=== PATIENT | male | born 1955 | race Caucasian/White ===

== ENCOUNTER → 2024-12-29 | Outpatient (CLI) | payer MEDICARE, MEDICAID, SELFPAY ==
[2024-12-29 12:37] LABS: Albumin, Serum 4.1 gm/dL (3.4-4.8); Anion Gap 6 (7-16); BUN/Creatinine Ratio 16 Ratio (12-20); Blood Urea Nitrogen 19 mg/dL (9-23); Calcium 8.9 mg/dL (8.3-10.6); Calcium (Corrected) 8.9 mg/dL (8.5-10.1); Carbon Dioxide 23.5 mMol/L (20.0-31.0); Chloride 114 mMol/L (98-107); Creatinine (Component) 1.2 mg/dL (0.6-1.3); Glucose 112 mg/dL (74-106); Osmolality,Calculated 288 (275-295); Phosphorous 2.6 mg/dL (2.4-5.1); Potassium 3.8 mMol/L (3.4-5.1); Sodium 143 mMol/L (136-145); eGFR > 60 See Note
== END | disposition home or self-care (01) ==
LOC: COPL 11:00
PROVIDERS: PCP Nurse Practitioner; Referring Provider Nurse Practitioner; Visit Provider Nurse Practitioner
DX: N18.32 Chronic kidney disease, stage 3b (principal)
CPT/HCPCS: 36415; 80069

== ENCOUNTER → 2025-02-05 | Outpatient (CLI) | payer MEDICARE, MEDICAID, SELFPAY ==
[2025-02-05 11:45] LABS: Collection Type, Urine Clean Catch
[2025-02-05 12:10] LABS: Basophils # (Auto) 0.2 Thou/mm3 (0.0-0.2); Basophils % (Auto) 2 % (0-2.5); Eosinophils # (Auto) 0.2 Thou/mm3 (0.0-0.5); Eosinophils % (Auto) 2 % (0-10); Hematocrit 38.0 % (41.0-53.0); Hemoglobin 12.8 g/dL (13.5-16.0); Immature Granulocytes Auto 0.03 Thou/mm3 (0.00-0.00); Lymphocytes # (Auto) 2.4 Thou/mm3 (1.0-4.8); Lymphocytes % (Auto) 24 % (10-50); Mean Corpuscular HGB Conc 33.7 g/dl (31.0-37.0); Mean Corpuscular Hemoglobin 29.6 pg (25.0-35.0); Mean Corpuscular Volume 88 fL (80-100); Monocytes # (Auto) 0.8 Thou/mm3 (0.0-0.8); Monocytes % (Auto) 8 % (0-12); Neutrophils # (Auto) 6.5 Thou/mm3 (1.8-7.7); Neutrophils % (Auto) 65 % (37-80); Nucleated Red Blood Cell # 0.00 Thou/mm3 (0.00-0.00); Nucleated Red Blood Cell % 0 /100 WBC (0); Platelet Count 332 Thou/mm3 (140-440); RDW Standard Deviation 46.1 fL (35.1-43.9); Red Blood Count 4.32 Miln/mm3 (4.50-5.90); White Blood Count 10.1 Thou/mm3 (3.8-10.6)
[2025-02-05 12:22] LABS: Alanine Aminotransferase 21 U/L (10-49); Albumin, Serum 4.2 gm/dL (3.4-4.8); Albumin/Globulin Ratio 1.6 (1.2-2.2); Alkaline Phosphatase 115 U/L (46-116); Anion Gap 5 (7-16); Aspartate Amino Transferase 20 U/L (0-34); BUN/Creatinine Ratio 13 Ratio (12-20); Bilirubin,Total 0.3 mg/dL (0.3-1.2); Blood Urea Nitrogen 15 mg/dL (9-23); Calcium 9.0 mg/dL (8.3-10.6); Calcium (Corrected) 9.0 mg/dL (8.5-10.1); Carbon Dioxide 23.9 mMol/L (20.0-31.0); Chloride 115 mMol/L (98-107); Creatinine (Component) 1.2 mg/dL (0.6-1.3); Globulin 2.6 gm/dL (2.3-3.5); Glucose 107 mg/dL (74-106); Magnesium 1.6 mg/dL (1.6-2.6); Osmolality,Calculated 287 (275-295); Phosphorous 2.7 mg/dL (2.4-5.1); Potassium 4.0 mMol/L (3.4-5.1); Sodium 144 mMol/L (136-145); Total Protein 6.8 gm/dL (5.7-8.2); Uric Acid 6.0 mg/dL (3.7-9.2); eGFR > 60 See Note
[2025-02-05 12:25] LABS: Creatinine MALB Rnd Ur 41 mg/dL (30-125); Microalbumin, Random Urine < 3 mg/L (0-300)
[2025-02-05 12:27] LABS: Ferritin 41 ng/mL (10.5-307.3); Iron 42 mcg/dL (65-175); Percent Iron Saturation 14 % (20-55); Total Iron Binding Capacity 299 mcg/dL (250-425); Unsaturated Iron Binding 257 (225-295)
[2025-02-05 12:28] LABS: Folate 9.26 ng/mL (>5.38); Vitamin B12 514 pg/mL (211-911); Vitamin D 25 Hydroxy Total 29.1 ng/mL (7.3-40.2)
[2025-02-05 12:34] LABS: Parathyroid Hormone Intact 29.7 pg/ml (18.5-88.0)
[2025-02-05 13:14] LABS: Bilirubin,Urine Negative (Negative); Blood,Urine Negative (Negative); Clarity,Urine Clear (Clear/Hazy); Color,Urine Colorless (Lt Yel-Yel); Glucose, Urine Negative (Negative); Ketones,Urine Negative (Negative); Leukocyte Esterase,Urine Negative (Negative); Nitrite,Urine Negative (Negative); PH,Urine 6.5 (5.0-7.0); Protein,Urine Negative (Neg - Trace); RBC,Urine 1 /hpf (0-3); Specific Gravity,Urine 1.008 (1.001-1.035); Squamous Epithelial Cell,Urine 1 /hpf (0-5); Urobilinogen,Urine Negative mg/dL (0.0-1.0); WBC,Urine 1 /hpf (0-5)
== END | disposition home or self-care (01) ==
LOC: COPL 11:00
PROVIDERS: PCP Family Medicine; Referring Provider Internal Medicine Nephrology; Visit Provider Internal Medicine Nephrology
DX: N18.32 Chronic kidney disease, stage 3b (principal); E55.9 Vitamin D deficiency, unspecified; E21.3 Hyperparathyroidism, unspecified; D63.8 Anemia in other chronic diseases classified elsewhere
CPT/HCPCS: 36415; 80053; 81001; 82043; 82306; 82570; 82607; 82728; 82746; 83540; 83550; 83735; 83970; 84100; 84550; 85025

== ENCOUNTER → 2025-03-10 | Outpatient (CLI) | payer MEDICARE, MEDICAID, SELFPAY ==
--- NOTE | 2025-03-10 15:00 | XR_ITS ---
Examination: CT abdomen and pelvis without contrast. Coronal 3-D reconstructions. Sagittal 2-D reconstructions. Date and time of exam:March 10, 2025, 1503 hours, comparison December 25, 2023 INDICATIONS: Left lower abdominal pain and tenderness after falling 3 weeks ago CTDI: vol (mGy): 8.65 DLP: (mGycm): 514 Technique: Axial images of the abdomen have been obtained, 3 mm slice thickness Intravenous contrast material has not been administered. Low dose protocols were performed. One or more of the following dose reduction techniques were used; automated exposure control, adjustment of the mA and/or KV according to patient size, use of iterative reconstruction technique. Findings: Pericardial effusion measuring up to 14 mm No visualized liver or splenic lesion No gallstones No pancreatic or adrenal mass No renal laceration or perinephric hematoma Abdominal aortic calcification, aorta is intact with no free blood in the abdomen 19 mm fat-containing umbilical hernia Normal appendix Colonic diverticulosis, no diverticulitis Urinary bladder contracted with mild wall thickening Moderate prostatomegaly Chronic osteoporotic compression L4, severe osteopenia, chronic osteoporotic compression T12 with kyphoplasty Right hip hemiarthroplasty with satisfactory alignment Moderate narrowing medial joint space IMPRESSION: Small pericardial effusion No abdominal parenchymal laceration Abdominal aorta intact No free blood in the abdomen or pelvis Severe osteopenia, chronic osteoporotic compressions L4, T12
== END | disposition home or self-care (01) ==
LOC: CCTX 14:26
PROVIDERS: PCP Family Medicine; Referring Provider Nurse Practitioner; Visit Provider Nurse Practitioner
DX: I31.39 Other pericardial effusion (noninflammatory) (principal); M85.88 Other specified disorders of bone density and structure, other site
CPT/HCPCS: 74176

== ENCOUNTER 2025-03-13 12:24 | Inpatient (IN) | payer MEDICARE, MEDICAID, SELFPAY ==
[2025-03-13] VITALS (16 sets, daily range): BP systolic 77–144; BP diastolic 52–80; PULSE 76–85; RESP 13–96; TEMP 36.4–37.1; O2SAT 92–98; BMI 28.2; BMI 28.0
--- NOTE | 2025-03-13 12:56 | EKG_ITS ---
[facility] Test Date: 2025-03-13 Pat Name: MACY OWENS Department: Room: - Gender: Male [employer] Operator: : [id number] Requested By: Dennis Peterson Order Number: [id number] Reading MD: Dennis Peterson Measurements Intervals [place] Rate: 75 P: 25 SC: 154 QRS: 1 QRSD: 92 T: 46 QT: 373 QTc: 418 Interpretive Statements SINUS RHYTHM Compared to ECG 04/21/2024 14:46:29 No significant changes /store/S0/[id number].pdf
--- NOTE | 2025-03-13 12:56 | XR_ITS ---
Examination: CT brain head without contrast. 2-D sagittal coronal reconstructions Date and time of exam:March 13, 2025 1319 hours INDICATIONS: Patient fell today with injury to the head, followed by head pain dizziness CTDI: vol (mGy):51.4 DLP: (mGycm):1050 Technique: Multiple CT axial sections of the brain have been obtained, 5 mm slice thickness. Contrast has not been administered. 2-D sagittal, coronal reconstructions have been obtained Low dose protocols were performed. One or more of the following dose reduction techniques were used; automated exposure control, adjustment of the mA and/or KV according to patient size, use of iterative reconstruction technique. Findings: No significant ventricular enlargement. Intra-axial or extra-axial hemorrhage density is not seen. No mass effect or midline shift Basal cisterns are not remarkable. Fourth ventricle is midline. Cranial vault intact. Impression: Negative for acute hemorrhage, mass effect or midline shift
--- NOTE | 2025-03-13 13:02 | PD.EDADULT ---
ED General RME/HPI General Chief complaint: Fall Stated complaint: FALLING WHEN WALKING, LOW BP, DIZZINESS Time Seen by Provider: 03/13/25 12:39 Arrival date/time: 03/13/25 12:24 RME / HPI RME / HPI narrative: 69-year-old male patient with significant history of prostate problem, hypertension, taking 81 mg of aspirin, came in for evaluation regarding near-syncope. Patient has been having frequent falls secondary to sudden onset of dizziness specially with doing something and ambulation. This been ongoing for the last 6 weeks, getting worst, yesterday developed at least 3 times. Patient also complained of abdominal pain, has been ongoing for the last few days, saw PCP, and CT scan of the abdomen and pelvis was done 3 days ago and came back unremarkable. Patient also complained of black-colored stool for the last 6 weeks, no vomiting blood. Denies any other complaints no medication was taken prior to arrival. In the triage patient blood pressure was noted to be 77/52. On my initial evaluation patient blood pressure was noted to be 96/78. Related Data Home Medications ?Medication ?Instructions ?Recorded ?Confirmed amlodipine 10 mg tablet 10 mg PO QDAY 05/17/18 04/21/24 tamsulosin 0.4 mg capsule 0.4 mg PO QDAY 11/23/20 04/21/24 cyclobenzaprine 10 mg tablet 10 mg PO TID 03/03/21 04/21/24 gabapentin 300 mg tablet 300 mg PO BID 03/03/21 04/21/24 ibuprofen 800 mg tablet 800 mg PO TID PRN Pain 03/03/21 04/21/24 lisinopril 20 mg tablet 20 mg PO QDAY 03/03/21 04/21/24 hydrocodone 10 mg-acetaminophen 1 tab PO TID 03/07/24 04/21/24 325 mg tablet tadalafil 10 mg tablet (Cialis) 10 mg PO DIRECTED PRN Sexual 03/17/24 04/21/24 Activity Previous Rx's ?Medication ?Instructions ?Recorded aspirin 81 mg tablet,delayed 81 mg PO QDAY #30 tabs 04/23/24 release atorvastatin 40 mg tablet 40 mg PO QPM #30 tabs 04/23/24 Allergies Allergy/AdvReac Type Severity Reaction Status Date / Time No Known Allergies Allergy Verified 03/13/25 12:30 Review of Systems Review of Systems Narrative Review of Systems: Review of system reviewed and within normal limits except mentioned in HPI ED Exam Narrative Physical exam: VITAL SIGNS: Reviewed. GENERAL APPEARANCE: Alert and interactive, follows commands, no acute distress, HEAD AND FACE: Non-traumatic. ENT: PERRL, pale conjunctiva, eyelid no trauma, Mucous membrane moist. NECK: Supple, nontender, no nuchal rigidity. CHEST: No tenderness, no crepitus, no paradoxical movement, no retractions. LUNGS: Clear, well ventilated, symmetric, no rales, no wheezing, no ronchi, no stridor, good breath sounds bilaterally. HEART: Regular rate, regular rhythm, no murmur, no gallops. ABDOMEN: Soft, positive bowel sounds, nondistended, no guarding, nontender, no rebound, no masses, RECTAL: Rectal exam was done by me, dark-colored stool noted however it was not pasty, positive for occult blood GENITAL: Deferred. NEUROLOGICAL: Gross motor function intact sensory function intact, Appropriate for age. MUSCULOSKELETAL: low back nontender, full range of motion. EXTREMITIES: Nontender, full range of motion. SKIN: Color pink, dry, no rash, no lacerations, no abrasions, no contusions. LYMPHATICS: Deferred. Course Quality Measures none Orders Category Date Time Status COVID-19 Screening Questionnaire NOW Care 03/13/25 14:22 Active Decision to Admit X1 Care 03/13/25 14:22 Active EKG (ED ONLY) *Do not use* NOW Care 03/13/25 12:56 Completed Thacker [Urinary Catheter] QS Care 03/13/25 13:53 Active IV [Insert IV] NOW Care 03/13/25 12:57 Active IV [Insert IV] NOW Care 03/13/25 12:59 Active Occult Blood,Stool (Nursing) ONCE Care 03/13/25 12:[address] abdomen wo con Stat Exams 03/13/25 14:[address] head/brain wo con Stat Exams 03/13/25 12:56 Completed EKG (ED Only) Stat Exams 03/13/25 12:56 Draft US renal BI Stat Exams 03/13/25 14:24 Completed CBC Stat Lab 03/13/25 12:55 Completed Comprehensive Metabolic Panel Stat Lab 03/13/25 12:55 Completed Partial Thromboplastin Time Stat Lab 09/12/25 12:55 Completed Prothrombin Time with INR Stat Lab 03/13/25 12:55 Completed Type and Screen Stat Lab 03/13/25 13:10 Completed Urinalysis Stat Lab 03/13/25 14:31 Completed Pantoprazole Inj [Protonix Inj] Med 03/13/25 13:30 Discontinued 80 mg IVP X1 ONE Ringers Lactated 1000 ml [Lactated Ringers] 1,000 ml Med 03/13/25 12:57 Discontinued IV 999 mls/hr Vital Signs Vital signs: Vital Signs Blood Pressure 77/52 L 03/13/25 12:33 Discharge Plan Plan Patient Disposition: Admit Acute Care w/in Hospital Discharge Disposition comment: Stable Problem List Clinical Impression: OG (acute kidney injury), Occult blood positive stool, Dizziness MDM Narrative [facility] hospital course: 69-year-old male patient with significant history of prostate problem, hypertension, taking 81 mg of aspirin, came in for evaluation regarding near-syncope. Patient has been having frequent falls secondary to sudden onset of dizziness specially with doing something and ambulation. This been ongoing for the last 6 weeks, getting worst, yesterday developed at least 3 times. Patient also complained of abdominal pain, has been ongoing for the last few days, saw PCP, and CT scan of the abdomen and pelvis was done 3 days ago and came back unremarkable. Patient also complained of black-colored stool for the last 6 weeks, no vomiting blood. Denies any other complaints no medication was taken prior to arrival. In the triage patient blood pressure was noted to be 77/52. On my initial evaluation patient blood pressure was noted to be 96/78. EKG showed sinus rhythm, ventricular rate of 75 bpm, no ST segment elevation depression noted. Patient received IV fluids for hydration, currently patient's blood pressure was noted to be 105/69. Patient is reported workup is significant for leukocytosis of 14.1 creatinine 3.2 BUN of 35. Last month patient's creatinine was normal. I did a rectal exam, it tested slightly positive for occult blood. I did not notice any black tarry stool. I reviewed patient's CT scan of the head, came back unremarkable. CT scan of the abdomen that was done 3 days ago also came back unremarkable. Medication Administration(s) Medication Administration History Acetaminophen (Acetaminophen 325 Mg Tablet) 650 mg PO Q6H PRN PRN Reason: PAIN OR FEVER > 100.4 Stop: 04/12/25 16:31 Enoxaparin Sodium (Enoxaparin Sod Inj 30 Mg/0.3 Ml Syringe) 30 mg SC QDAY MARY KATE Stop: 03/28/25 08:59 Lactated Ringer's (Lactated Ringers) 1,000 mls @ 80 mls/hr IV .[id number] MARY KATE Stop: 04/12/25 16:44 Discontinued Medications Acetaminophen (Acetaminophen 500 Mg Tablet) 1,000 mg PO Q6H PRN PRN Reason: Fever >101.5 Stop: 04/12/25 16:14 Lactated Ringer's (Lactated Ringers) 1,000 mls @ 999 mls/hr IV .Q1H1M ONE Stop: 03/13/25 13:57 Last Infusion: 03/13/25 14:35 Dose: Infused Documented By: Admin: 03/13/25 13:31 Dose: 999 mls/hr Documented By: MILA Pantoprazole Sodium (Pantoprazole Inj 40 Mg Vial) 80 mg IVP X1 ONE Stop: 03/13/25 13:31 Last Admin: 03/13/25 13:28 Dose: 80 mg Documented By: MILA
[2025-03-13 13:18] LABS: Basophils # (Auto) 0.1 Thou/mm3 (0.0-0.2); Basophils % (Auto) 1 % (0-2.5); Eosinophils # (Auto) 0.2 Thou/mm3 (0.0-0.5); Eosinophils % (Auto) 1 % (0-10); Hematocrit 34.5 % (41.0-53.0); Hemoglobin 11.5 g/dL (13.5-16.0); Immature Granulocytes Auto 0.04 Thou/mm3 (0.00-0.00); Lymphocytes # (Auto) 3.1 Thou/mm3 (1.0-4.8); Lymphocytes % (Auto) 22 % (10-50); Mean Corpuscular HGB Conc 33.3 g/dl (31.0-37.0); Mean Corpuscular Hemoglobin 29.7 pg (25.0-35.0); Mean Corpuscular Volume 89 fL (80-100); Monocytes # (Auto) 1.2 Thou/mm3 (0.0-0.8); Monocytes % (Auto) 8 % (0-12); Neutrophils # (Auto) 9.5 Thou/mm3 (1.8-7.7); Neutrophils % (Auto) 67 % (37-80); Nucleated Red Blood Cell # 0.00 Thou/mm3 (0.00-0.00); Nucleated Red Blood Cell % 0 /100 WBC (0); Platelet Count 352 Thou/mm3 (140-440); RDW Standard Deviation 48.0 fL (35.1-43.9); Red Blood Count 3.87 Miln/mm3 (4.50-5.90); White Blood Count 14.1 Thou/mm3 (3.8-10.6)
[2025-03-13 13:31] LABS: INR 1.0 (0.9-1.3); Partial Thromboplastin Time 22.0 Seconds (22.0-36.0); Prothrombin Time 10.6 Seconds (9.0-12.2)
[2025-03-13] MEDS: RINGERS LACTATED 1000 ML 1,000 ML 999 ML IV (13:31)
[2025-03-13 13:35] LABS: Alanine Aminotransferase 12 U/L (10-49); Albumin, Serum 4.3 gm/dL (3.4-4.8); Albumin/Globulin Ratio 1.6 (1.2-2.2); Alkaline Phosphatase 118 U/L (46-116); Anion Gap 8 (7-16); Aspartate Amino Transferase 14 U/L (0-34); BUN/Creatinine Ratio 11 Ratio (12-20); Bilirubin,Total 0.3 mg/dL (0.3-1.2); Blood Urea Nitrogen 35 mg/dL (9-23); Calcium 8.9 mg/dL (8.3-10.6); Calcium (Corrected) 8.9 mg/dL (8.5-10.1); Carbon Dioxide 21.8 mMol/L (20.0-31.0); Chloride 109 mMol/L (98-107); Creatinine (Component) 3.2 mg/dL (0.6-1.3); Estimated Creatinine Clearance 26.3 mL/min (>60); Globulin 2.7 gm/dL (2.3-3.5); Glucose 119 mg/dL (74-106); Osmolality,Calculated 286 (275-295); Potassium 4.0 mMol/L (3.4-5.1); Sodium 139 mMol/L (136-145); Total Protein 7.0 gm/dL (5.7-8.2); eGFR 20 See Note
--- NOTE | 2025-03-13 14:24 | XR_ITS ---
Examination: Retroperitoneal ultrasound, complete Technique: Multiple high resolution grayscale images of the retroperitoneum obtained, including kidneys and bladder. Exam date and time:March 13, 2025, 1432 hours INDICATIONS: Acute renal insufficiency on laboratory examination this week FINDINGS: Right kidney 10.0 cm cortex 1.2 cm Left kidney 11.5 cm cortex 1.7 cm 18 mm left renal cyst No hydronephrosis Mild renal parenchymal scar formation Contracted urinary bladder IMPRESSION: Bilateral renal cortical thinning Mild bilateral renal parenchymal scar formation No hydronephrosis
[2025-03-13 14:40] LABS: Collection Type, Urine Clean Catch
--- NOTE | 2025-03-13 14:42 | XR_ITS ---
Examination: CT abdomen without intravenous contrast. Coronal 2-D reconstructions. Sagittal 2-D reconstructions. Date and time of exam:March 13, 2025, 1524 hours, comparison March 10, 2025 INDICATIONS: Upper abdominal pain beginning today CTDI: vol (mGy): 9.35 DLP: (mGycm): 365 Technique: Axial images of the abdomen have been obtained, 3 mm slice thickness, without intravenous contrast 2-D sagittal coronal reconstructions Low dose protocols were performed. One or more of the following dose reduction techniques were used; automated exposure control, adjustment of the mA and/or KV according to patient size, use of iterative reconstruction technique. Findings: Small pericardial effusion, anteriorly measuring 11 mm No visualized liver or splenic lesion Contracted gallbladder No pancreatic or adrenal mass Moderate renal scar formation No renal calculi or hydronephrosis Aortic calcification no aneurysmal dilatation Normal appendix No bowel obstruction No diverticulitis IMPRESSION: Moderate renal parenchymal scar formation No renal or ureteral calculi, no hydronephrosis Normal appendix No bowel obstruction
[2025-03-13 14:50] LABS: Bilirubin,Urine Negative (Negative); Blood,Urine 1+ (Negative); Clarity,Urine Clear (Clear/Hazy); Color,Urine Lt-Yellow (Lt Yel-Yel); Glucose, Urine Negative (Negative); Hyaline Casts,Urine < 1 /hpf (0-1); Ketones,Urine Negative (Negative); Leukocyte Esterase,Urine Negative (Negative); Nitrite,Urine Negative (Negative); PH,Urine 6.0 (5.0-7.0); Protein,Urine Trace (Neg - Trace); RBC,Urine 42 /hpf (0-3); Specific Gravity,Urine 1.015 (1.001-1.035); Squamous Epithelial Cell,Urine < 1 /hpf (0-5); Urobilinogen,Urine Negative mg/dL (0.0-1.0); WBC,Urine 2 /hpf (0-5)
--- NOTE | 2025-03-13 16:27 | ESHP_ITS ---
<Statement entered by Keven Stuart MD - 03/14/25 01:42> Chris Martini is a 69-year-old male with a past medical history of BPH, hypertension, chronic back pain who presented with lightheadedness and presyncope with initial BP in ED of 77/52 and admitted for management of OG. Received IV fluids in ED and responsive, improving SBP to low 100s/110s. Other vital signs stable and CBC remarkable for leukocytosis of 14, hemoglobin of 11.5 which seems to be patient's baseline. CHEM panel shows creatinine at 3.2 with baseline appearing to be 0.9-1.1. Suspect that decreased renal function may have led to decreased clearance of particular medications. States that he takes cyclobenzaprine, gabapentin, and [place] and suspect that the decreased clearance may have led to altered mentation. Will continue IVF for OG and if continues to improve then likely prerenal in etiology. Will hold blood pressure medications and continue to monitor given soft BP in ED and IVF for OG. ----- Note reviewed and agree with care plan as documented. Please refer to the note below for further details. Plan discussed with attending physician Dr. Yessy Stuart MD PGY-2 Internal Medicine Documentation for date of: 03/13/25 HPI History of Present Illness History of present illness: HPI: 69-year-old male with a past medical history of BPH, hypertension, and chronic back pain presented to the ED on 03/13/2025 after having episodes of near syncope for the past 6 weeks. He describes feelings of dizziness and like he needs to pass out that occur about 3-4 times per day that last a few seconds. He denies chest pain, palpitations, or shortness of breath during these episodes. He does admit to tunneling of his vision during these events. The patient took [place] and cyclobenzaprine this morning. Per ED physician history, the patient has also complained about abdominal pain going on for the past few days. A CT of the abdomen pelvis 3 days ago was unremarkable. Patient also endorsed black-colored stool for the past 6 weeks but denied hematemesis. The patient never mentioned any history of black- colored stools to me personally on initial evaluation. ED course: * Vitals on arrival: BP 77/52, pulse 82, respiratory rate 19, O2 sat 96% on room air. * Labs: White blood cell 14.1, hemoglobin 11.5, BUN 35, creatinine 3.2, eGFR of 20, glucose 119, urine RBCs 42. Other labs: Sodium 139, potassium 4.0, chloride 109, carbon dioxide 21.8, anion gap 8. * Imaging: Head CT was negative for acute hemorrhage mass effect or midline shift. EKG showed a sinus rhythm with a rate of [address] segment changes. Renal ultrasound showed bilateral renal cortical thinning, mild bilateral renal parenchymal scar formation, there was no hydronephrosis, there is an 18 mm left renal cyst. Abdominal CT showed no renal or ureteral calculi, no hydronephrosis, normal appendix, and no bowel obstruction. * In the ED, patient was started on IV fluids and received a rectal exam that was slightly positive for occult blood. He also had a Thacker placed and drained a significant unspecified volume of urine. History: * Past medical history: Hypertension, BPH * Surgical history: Hip and knee replacement * Family history: Patient denies any family history of medical problems * Social history: Patient has smoked 1 pack of cigarettes daily for 50 years, denies alcohol or illicit drugs * Allergies: No known drug allergies Home medications: * Amlodipine 10 mg p.o. daily * Tamsulosin 0.4 mg p.o. daily * Cyclobenzaprine 10 mg p.o. 3 times daily * Gabapentin 300 mg p.o. twice daily * Ibuprofen 800 mg p.o. 3 times daily as needed * Lisinopril 20 mg p.o. daily * Hydrocodone 10 mg acetaminophen 325 mg 1 tablet p.o. 3 times daily * Tadalafil 10 mg as needed * Isosorbide mononitrate ER 60 mg daily * Hydrochlorothiazide 25 mg daily * Nitroglycerin 0.4 mg as needed Review of Systems Review of Systems Narrative Review of Systems: Review of Systems: * General: Denies fevers, chills. * HEENT: Denies headache, congestion, or sore throat. * Cardiac: Denies chest pain or palpitations. * Pulmonary: Denies shortness of breath or cough. * GI: Denies nausea, vomiting, diarrhea, constipation, melena, or hematochezia. * : Denies dysuria, hematuria, frequency, or urgency. * MSK: Denies pain in the extremities, joints, or myalgias. * Neuro: Has had 3-4 episodes daily of dizziness and feeling like he needs to pass out that last for a few seconds, denies loss of consciousness. Exam Vital Signs Pulse Resp BP Pulse Ox O2 Del Method 76 19 105/69 98 Room Air 03/13/25 14:33 03/13/25 14:33 03/13/25 14:33 03/13/25 14:33 03/13/25 14:33 Narrative Exam General: Confused. Awake and in no acute distress. Conversational and non-toxic appearing. Neurologic: No gross neurological deficit, and patient able to move all 4 extremities. HEENT: Normocephalic, atraumatic, mucous membranes moist. Pupils reactive to light. Heart: Regular rate and rhythm, normal S1 and S2, no murmurs. Lungs: Clear to auscultation bilaterally with no wheezing or crackles. Abdomen: Soft, nondistended, nontender, positive bowel sounds. No guarding or rebound tenderness. Extremities: No edema. 2+ radial and dorsalis pedis pulses bilaterally. Skin: Warm. Dry. No rash or ecchymoses. Results: Labs 03/14/25 04:55 03/14/25 04:55 Labs: Short CBC 03/13/25 Range/Units 12:55 WBC 14.1 H (3.8-10.6) Thou/mm3 Hgb 11.5 L (13.5-16.0) g/dL Hct 34.5 L (41.0-53.0) % Plt Count 352 (140-440) Thou/mm3 BMP 03/13/25 12:55 Sodium 139 Potassium 4.0 Chloride 109 H Carbon Dioxide 21.8 BUN 35 H Creatinine 3.2 H Glucose 119 H Calcium 8.9 Liver Function 03/13/25 Range/Units 12:55 Total Bilirubin 0.3 (0.3-1.2) mg/dL AST 14 (0-34) U/L ALT 12 (10-49) U/L Alkaline Phosphatase 118 H (46-116) U/L Albumin 4.3 (3.4-4.8) gm/dL Urine 03/13/25 Range/Units 14:31 Urine Color Lt-Yellow (Lt Yel-Yel) Urine Clarity Clear (Clear/Hazy) Urine pH 6.0 (5.0-7.0) Ur Specific [place] 1.015 (1.001-1.035) Urine Protein Trace (Neg - Trace) Urine Glucose (UA) Negative (Negative) Quality Measures Quality Measures none Advance care planning discussed with:: patient Medications Home Medications and Allergies Home Medications ?Medication ?Instructions ?Recorded ?Confirmed ?Type amlodipine 10 mg tablet 10 mg PO QDAY 05/17/1803/14 History tamsulosin 0.4 mg capsule 0.4 mg PO QDAY 11/23/2003/02 History cyclobenzaprine 10 mg tablet 10 mg PO TID 03/03/21 History gabapentin 300 mg tablet 300 mg PO QID 03/03/2103/14 History ibuprofen 800 mg tablet 800 mg PO TID PRN Pain 03/0303/14/25 History lisinopril 20 mg tablet 30 mg PO QDAY 03/03/2103/14 History hydrocodone 10 mg-acetaminophen 1 tab PO TID 03/07/24 03/14/25 History 325 mg tablet tadalafil 10 mg tablet (Cialis) 10 mg PO DIRECTED P RN Sexual 03/17/24 03/14/25 History Activity albuterol sulfate 90 mcg/actuation 2 puff inhalation Q 4H PRN 03/14/25 03/14/25 History aerosol inhaler shortness of breath or wheez ing Allergies Allergy/AdvReac Type Severity Reaction Status Date / Time No Known Allergies Allergy Verified 03/13/25 12:30 Visit Medications Acetaminophen (Acetaminophen 325 Mg Tablet) 1,000 mg PO Q6H PRN PRN Reason: Fever >101.5 Stop: 04/12/25 16:14 Enoxaparin Sodium (Enoxaparin Sod Inj 40 Mg/0.4 Ml Syringe) 40 mg SC QDAY MARY KATE Stop: 03/28/25 08:59 Discontinued Medications Lactated Ringer's (Lactated Ringers) 1,000 mls @ 999 mls/hr IV .Q1H1M ONE Stop: 03/13/25 13:57 Last Infusion: 03/13/25 14:35 Dose: Infused Pantoprazole Sodium (Pantoprazole Inj 40 Mg Vial) 80 mg IVP X1 ONE Stop: 03/13/25 13:31 Last Admin: 03/13/25 13:28 Dose: 80 mg Assessment & Plan Plan Summary: 69-year-old male with a past medical history of hypertension, BPH, and chronic back pain who presented to the ED on 03/13/2025 with a 6-week history of 3-4 episodes per day of dizziness and feeling like he needs to pass out and black stools for the past 6 weeks. #Syncopal episode * For the past 6 weeks, the patient has had 3-4 episodes per day where he feels dizzy and like he needs to pass out for a few seconds with associated tunnel vision * The patient takes [place], cyclobenzaprine, lisinopril, amlodipine, tadalafil, and isosorbide mononitrate at home, all of which can affect blood pressure * Though the patient denies taking all of these medications at once, polypharmacy should still be considered in the presence of a syncopal episode * Per the patient he took [place] and cyclobenzaprine this morning, which may explain his confusion on initial examination * Patient has had melena, hemoglobin 11.5. Less likely that syncope is caused by anemia, patient is not tachycardic Plan: * Will hold home medications cyclobenzaprine, lisinopril, amlodipine, tadalafil, and isosorbide mononitrate * Will consider resuming when deemed safe based on hemodynamic stability and patient's mentation * Continue to monitor the patient's mentation, respiratory drive * Follow-up orthostatic vitals #OG on CKD #BPH * Patient takes tamsulosin, mentions that it helps him urinate * Patient had a large volume of urine drained from his bladder from Thacker catheter in the ED * BUN 35, creatinine 3.2, eGFR 20, considering the presence of acute urinary retention abdominal CT was negative for hydronephrosis because it was performed after the patient's bladder was drained * Per the patient his baseline GFR is around 60 Plan: * Continue Thacker * Hold home tamsulosin * Trend BUN, creatinine, eGFR #Hypertension * Patient takes amlodipine 10 mg p.o. daily, lisinopril 20 mg p.o. daily, isosorbide mononitrate 60 mg daily, hydrochlorothiazide 25 mg daily, and nitroglycerin 0.4 mg as needed * Patient presented hypotensive with a BP in the 70s over 40s, is improving Plan: * Will hold these medications in the setting of hypotension and near syncope * Consider resuming based on hemodynamic stability and the patient's mentation #Coronary artery disease #Hyperlipidemia * Patient had a coronary angiogram with Dr. Dubois on 04/22/2024 that showed a left ventricular systolic function of 55% and a mid segment 40 to 50% occlusion lesion of the left anterior descending artery * Per Dr. Dubois, medical management was continued * Patient takes atorvastatin 40 mg p.o. daily Plan: * Consider restarting home statin #Melena * Patient has had a 6-week history of melanotic stools * Fecal occult blood test was positive in the ED * Hemoglobin 11.5 Plan: * GI consult * Trend H&H #Chronic pain * Patient has a history of chronic back pain * Takes [place] and cyclobenzaprine as needed Plan: * Will not start scheduled [place] doses at this time, however will do spot doses of [place] 5/325 as needed for pain Hospital Maintenance: DVT ppx: SCDs GI ppx: Pantoprazole 40 mg once daily Diet: Cardiac diet IV lines: Peripheral IV Thacker: In place Code status: DNR, intubation okay Dispo: Admitted for recurrent near syncopal events and melena. GI consulted. Monitoring the patient's mentation. Patient was seen and discussed with my attending physician Dr. Yessy NAYAK and my senior resident Dr. Narciso LING PGY-2. Lorne Serrano DO PGY-1. Attending Provider Attestation/Addendum Tameka Nowak DO, attest that I was physically present for the fowler portions of the service and evaluated the patient with the resident and I reviewed and discussed the case with the resident and agree with the resident's findings and plans of care as documented above Patient is a 69-year-old male with past medical history of BPH, hypertension, chronic back pain who presented to the ED due to lethargy and confusion. Patient was seen by his primary doctor this a.m during which he was noted to be very lethargic and had fallen asleep during the interview with his primary doctor. Spoke with the midlevel at [facility] who stated that the patient was stumbling when he came into the clinic. He stated that he had just taken his [place],gabapentin and Flexeril this morning. He was noted to have a systolic blood pressure in the 60s. Patient's was subsequently called to the clinic to send patient to the ED. Upon presentation to the ED, patient was very confused per ER provider. CT head was done showing no acute intracranial findings. A CT abdomen and pelvis had been done about 3 days ago. However, this CT was ordered from previous primary doctor visit due to falls. It is unclear if patient's creatinine was elevated at that time. Will repeat CT abdomen pelvis to rule out any obstruction causing elevated creatinine. Patient received IV fluids in the ER and appears much more alert. is also at bedside to provide further history. 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 He has had frequent falls for this reason. He states that he has been seeing a computer systems software engineer outpatient and had a cardiac cath about 1 year ago during which he was not found to have any lesions. Patient takes aspirin at home. He also takes lisinopril Flomax. He states the Flomax has been helping with his BPH significantly. Suspect that patient may be having syncopal episodes due to polypharmacy and hypotension. Will hold any antihypertensives at this time. Patient states that he does not like to drink water and usually drinks Pepsi. He has seen a geography professor in the past due to acute kidney injury in the setting of ibuprofen overuse. Kidneys have since recovered and patient states he stopped drinking water after he was told that it had improved. states that patient often talks crazy . He takes [place] at home due to his chronic back pain. Will admit patient to med/telemetry for further workup and medical management of OG versus CKD. Baseline creatinine is 1.2, creatinine currently 3.2. Renal ultrasound also shows no hydronephrosis or obstruction. Nephrology consulted. Will start patient on IV fluid hydration and follow with renal function. Will monitor nephrotoxic agents. Once blood pressure improves, will do orthostatic vitals. Will monitor urine output with Thacker catheter. Per nurse at bedside, patient has significant urine output after Thacker placement. Will avoid any nephrotoxic agents at this time
[2025-03-13] MEDS: RINGERS LACTATED 1000 ML 1,000 ML 80 ML IV (18:03)
[2025-03-13] MEDS: HYDROcodone/APAP 5/325 TABLET 1 TAB PO (18:03)
--- NOTE | 2025-03-13 18:28 | PC.NURSE ---
REPORT CALLED TO SALMA AMBROSE. PATIENT BEING ADMITTED TO MED/TELE BED.
--- NOTE | 2025-03-13 18:59 | PD.IMCONS ---
HPI Data of Consult Requesting Physician: Tameka Krishnamurthy DO Primary Care Provider: MEL Barry Consult Narrative Reason for consult: Melena FOBT positive, syncope History of present illness: 69 years old male came to the emergency room with episodes of syncope was found to have 2 to 3-day history of melanotic stools and was found to be Hemoccult positive Initial hemoglobin hematocrit 11.5 and 34.5 He does take baby aspirin but no other blood thinners He does have a history of essential hypertension and history of hip and knee replacement patient does take ibuprofen also on a as needed basis cc:: cc: Tameka Krishnamurthy DO Review of Systems Review of Systems Systems Reviewed: All systems reviewed, normal except as documented Past Medical History Surgical History OTHER SURGICAL HX: As under history of present illness Meds Home Medications and Allergies Home Medications ?Medication ?Instructions ?Recorded ?Confirmed ?Type amlodipine 10 mg tablet 10 mg PO QDAY 05/17/18 04/21/24 History tamsulosin 0.4 mg capsule 0.4 mg PO QDAY 11/23/20 04/21/24 History cyclobenzaprine 10 mg tablet 10 mg PO TID 03/03/21 04/21/24 History gabapentin 300 mg tablet 300 mg PO BID 03/03/21 04/21/24 History ibuprofen 800 mg tablet 800 mg PO TID PRN Pain 03/03/21 04/21/24 History lisinopril 20 mg tablet 20 mg PO QDAY 03/03/21 04/21/24 History hydrocodone 10 mg-acetaminophen 1 tab PO TID 03/07/24 04/21/24 History 325 mg tablet tadalafil 10 mg tablet (Cialis) 10 mg PO DIRECTED PRN Sexual 03/17/24 04/21/24 History Activity Allergies Allergy/AdvReac Type Severity Reaction Status Date / Time No Known Allergies Allergy Verified 03/13/25 12:30 Exam Vital Signs Temp Pulse Resp BP Pulse Ox O2 Del Method 98.7 F 84 17 132/75 H 95 Room Air 03/13/25 18:15 03/13/25 18:47 03/13/25 18:15 03/13/25 18:47 03/13/25 18:15 03/13/25 18:15 Constitutional Comments: Chronically ill-appearing Routine Respiratory Exam Comments: Normal to auscultation Routine Abdominal Exam Comments: Soft nontender Results Labs 03/13/25 12:55 03/13/25 12:55 Labs: Short CBC 03/13/25 Range/Units 12:55 WBC 14.1 H (3.8-10.6) Thou/mm3 Hgb 11.5 L (13.5-16.0) g/dL Hct 34.5 L (41.0-53.0) % Plt Count 352 (140-440) Thou/mm3 BMP 03/13/25 12:55 Sodium 139 Potassium 4.0 Chloride 109 H Carbon Dioxide 21.8 BUN 35 H Creatinine 3.2 H Glucose 119 H Calcium 8.9 Liver Function 03/13/25 Range/Units 12:55 Total Bilirubin 0.3 (0.3-1.2) mg/dL AST 14 (0-34) U/L ALT 12 (10-49) U/L Alkaline Phosphatase 118 H (46-116) U/L Albumin 4.3 (3.4-4.8) gm/dL Urine 03/13/25 Range/Units 14:31 Urine Color Lt-Yellow (Lt Yel-Yel) Urine Clarity Clear (Clear/Hazy) Urine pH 6.0 (5.0-7.0) Ur Specific [place] 1.015 (1.001-1.035) Urine Protein Trace (Neg - Trace) Urine Glucose (UA) Negative (Negative) Assessment and Plan Additional Assessment & Plan Additional Plan: Melena Hemoccult positive stool Anemia blood loss OG on CKD Essential hypertension Plan Clear liquid diet N.p.o. midnight tonight except p.o. meds Consent obtained for fiberoptic esophagogastroduodenoscopy with possible biopsy possible therapeutic intervention under intravenous moderate sedation Scheduled for tomorrow IV Protonix Thank you very much for the opportunity to participate in care of this patient
--- NOTE | 2025-03-13 20:41 | PC.NURSE ---
re med rec- Pt don't remember name of home meds. Advised pt to have family bring med bottles from home in a.m.
[2025-03-13] MEDS: HEPARIN SOD INJ 5000 UNIT/ML VIAL SC (22:25)
[2025-03-14] VITALS (18 sets, daily range): BP systolic 97–168; BP diastolic 59–95; PULSE 20–92; RESP 12–98; TEMP 36.3–36.9; O2SAT 92–100
--- NOTE | 2025-03-14 05:06 | PC.NURSE ---
re consent for egd- Pt does not know exactly what procedure he will have today, it's the stomach - Pt prefers to talk to Dr. Crouch before signing consent.
[2025-03-14 05:41] LABS: Basophils # (Auto) 0.1 Thou/mm3 (0.0-0.2); Basophils % (Auto) 1 % (0-2.5); Eosinophils # (Auto) 0.3 Thou/mm3 (0.0-0.5); Eosinophils % (Auto) 3 % (0-10); Hematocrit 30.7 % (41.0-53.0); Hemoglobin 10.4 g/dL (13.5-16.0); Immature Granulocytes Auto 0.02 Thou/mm3 (0.00-0.00); Lymphocytes # (Auto) 2.9 Thou/mm3 (1.0-4.8); Lymphocytes % (Auto) 30 % (10-50); Mean Corpuscular HGB Conc 33.9 g/dl (31.0-37.0); Mean Corpuscular Hemoglobin 30.1 pg (25.0-35.0); Mean Corpuscular Volume 89 fL (80-100); Monocytes # (Auto) 1.0 Thou/mm3 (0.0-0.8); Monocytes % (Auto) 11 % (0-12); Neutrophils # (Auto) 5.4 Thou/mm3 (1.8-7.7); Neutrophils % (Auto) 55 % (37-80); Nucleated Red Blood Cell # 0.00 Thou/mm3 (0.00-0.00); Nucleated Red Blood Cell % 0 /100 WBC (0); Platelet Count 274 Thou/mm3 (140-440); RDW Standard Deviation 46.7 fL (35.1-43.9); Red Blood Count 3.45 Miln/mm3 (4.50-5.90); White Blood Count 9.7 Thou/mm3 (3.8-10.6)
[2025-03-14 06:00] LABS: INR 1.0 (0.9-1.3); Partial Thromboplastin Time 28.2 Seconds (22.0-36.0); Prothrombin Time 10.7 Seconds (9.0-12.2)
[2025-03-14] MEDS: RINGERS LACTATED 1000 ML 1,000 ML 80 ML IV (06:29)
[2025-03-14 06:39] LABS: Alanine Aminotransferase 10 U/L (10-49); Anion Gap 7 (7-16); Aspartate Amino Transferase 10 U/L (0-34); Bilirubin,Total 0.3 mg/dL (0.3-1.2); Blood Urea Nitrogen 27 mg/dL (9-23); Calcium 8.5 mg/dL (8.3-10.6); Carbon Dioxide 21.7 mMol/L (20.0-31.0); Cardiac Risk Estimate 2.7 RATIO (4.0-6.7); Chloride 115 mMol/L (98-107); Cholesterol 74 mg/dL (132-200); Glucose 93 mg/dL (74-106); HDL Cholesterol 27 mg/dL (40-60); LDL Cholesterol,Calculated 34 mg/dL (0-130); Magnesium 2.2 mg/dL (1.6-2.6); Osmolality,Calculated 291 (275-295); Phosphorous 3.2 mg/dL (2.4-5.1); Potassium 3.4 mMol/L (3.4-5.1); Sodium 144 mMol/L (136-145); Thyroid Stimulating Hormone 0.96 uIU/mL (0.55-4.78); Total Protein 5.9 gm/dL (5.7-8.2); Triglycerides 65 mg/dL (30-150)
[2025-03-14 06:40] LABS: Albumin, Serum 3.5 gm/dL (3.4-4.8); Albumin/Globulin Ratio 1.5 (1.2-2.2); Alkaline Phosphatase 97 U/L (46-116); BUN/Creatinine Ratio 17 Ratio (12-20); Calcium (Corrected) 8.9 mg/dL (8.5-10.1); Creatinine (Component) 1.6 mg/dL (0.6-1.3); Estimated Creatinine Clearance 52.6 mL/min (>60); Globulin 2.4 gm/dL (2.3-3.5); eGFR 47 See Note
[2025-03-14 08:32] LABS: OBS Card Lot # 124; OBS Developer Lot # 224; OBS Performed By fabic; OBS QC OK? Yes; Occult Blood, Stool Negative (Negative)
[2025-03-14] MEDS: VIT B12/Vit C/FA (Nephrovite) TABLET 1 TAB PO (10:27)
[2025-03-14] MEDS: NICOTINE PATCH 7 MG/24 HR PATCH.TD24 TOP (10:27)
--- NOTE | 2025-03-14 10:51 | PC.SS ---
69YO White male, reason for visit: SYNCOPE, OG. ? SS met with patient at bedside, role, and purpose of today?s contact was explained. Patient confirmed his demographic information. Patient stated his primary medical surrogate decisionmaker is his spouse, Giselle Martini [phone]. Patient reported he is independent with ADL completion and ambulation as well. Pharmacy: [facility] PCP: Carri Dubon, last appt. was over a year ago. Discharge plan discussed with patient, he is requesting to return home at the time of discharge. ? Next of kin: Spouse, Giselle Martini [phone] Discharge plan: Home, family to transport.
--- NOTE | 2025-03-14 10:55 | PD.NEPHCONS ---
History of Present Illness Data of Consult Consult date: 03/14/25 Requesting Physician: Tameka Krishnamurthy DO Primary Care Provider: MEL Barry Consult Narrative Reason for consult: OG History of present illness: Mr. Martini is a 69-year-old gentleman with past medical history significant for hypertension, BPH (seen Dr Castro-On tamsulosin), chronic back pain (on [place], cyclobenzaprine, gabapentin) presented to the emergency department complaining of presyncopal episode and passing out spells with dizziness going on for the last 6 weeks. Each episode last few seconds. Also associated with some blurred vision. In the emergency department CT abdomen was unremarkable. Renal ultrasound unremarkable with no hydronephrosis. Patient stated that for the last couple of weeks he is having pain in the left lower quadrant. Per ER records apparently he had black-colored stools although stool guaiac was negative in the ED. Dr. Crouch was consulted. Patient going for endoscopy. In the emergency department his blood pressure was 77/52, heart rate 82. Labs showed WBC 14.1, hemoglobin [place] 0.5, BUN 35, creatinine 3.2, urinalysis shows 1+ blood with 42 RBCs. Sodium 139, potassium 4, bicarbonate 22. CT brain negative. EKG normal sinus rhythm. Renal consultation requested in view of OG. His home medications list included amlodipine, tamsulosin, MINNIE Bhanu, cyclobenzaprine, ibuprofen (recently discontinued), lisinopril, [place], tadalafil as needed, isosorbide as needed, hydrochlorothiazide--patient's family is going to bring the actual medications. Patient currently seen in medical floor. Dr. Krishnamurthy at bedside. Thacker catheter was inserted and the patient making good urine. Her creatinine markedly improved today. Blood pressure acceptable. Off all his home medications. cc:: cc: Tameka Krishnamurthy DO Review of Systems Review of Systems Narrative Review of Systems: CONSTITUTIONAL: Patient denies any fever, chills. HEENT: Denies any visual disturbances or hearing problems. CARDIOVASCULAR: Patient denies any chest pain, shortness of breath, swelling in the lower extremities. PULMONARY: Patient denies any shortness of breath, cough. GASTROINTESTINAL: Patient denies any abdominal pain, constipation, nausea, vomiting, diarrhea. GENITOURINARY: Patient denies any urinary symptoms of burning or frequency or hematuria, denies any form in the urine. Did have prostate problems SKIN: Denies any rash. MUSCULOSKELETAL: Denies any muscular skeletal problems of joint pains. NEUROLOGICAL: Denies any neurological problems of strokes, seizures or confusion. Denies any memory problems. Complaining of dizziness PSYCHIATRIC: Denies any depression or anxiety. LYMPHATICS : No lymphadenopathy Past Medical History Past Medical History NEUROLOGIC: Negative Neurological Disorders or Seizures CARDIAC: Positive Cardiac Disorders (Hx irregular heartbeat), Angina, Hypercholesterolemia, Edema (ankles) and Hypertension; Negative Congestive Heart Failure, Cellulitis or Varicose Veins RESPIRATORY: Negative Chronic Obstructive Pulmonary Disease (COPD) or Asthma GASTROINTESTINAL: Negative Gastrointestinal Disorders or Hepatitis GENITOURINARY: Positive Genitourinary Disorders (Hx left kidney hurting) and Benign Prostatic Hyperplasia; Negative Renal Disease MUSCULOSKELETAL: Positive Musculoskeletal Disorders, Arthritis and Fractures (right hip due to fall) ENT: Negative Glaucoma ENDOCRINE: Negative Endocrine Disorders, Diabetes Mellitus Type 1 or Diabetes Mellitus Type 2 HEMATOLOGIC: Negative Blood Disorders or Sickle Cell Disease OTHER HISTORY: Positive Hospitalization and Falls (a week ago, hurt right hip); Negative Autoimmune Disease, Shingles, Blood Transfusions, Anesthesia Reactions, Chemotherapy, Radiation Therapy, MRSA, Chicken Pox, Measles, Mumps or Cancer Family History FAMILY HISTORY: Positive Family Cardiac Disorders; Negative Family Psychiatric Problems, Family Respiratory Disorders, Family Gastrointestinal Problems, Family Cancer, Family Surgery or Family Anesthesia Reaction Surgical History SURGICAL: Positive Cardiac Surgery (irregular heart beat-they burned it or something), Joint Replacement, Hip Sx (right hip replacement-8 yrs ago) and Vasectomy; Negative Pacemaker OTHER SURGICAL HX: As under history of present illness Social History SMOKING STATUS: Current every day smoker SECOND HAND EXPOSURE: Yes (fiance) Meds Home Medications and Allergies Home Medications ?Medication ?Instructions ?Recorded ?Confirmed ?Type amlodipine 10 mg tablet 10 mg PO QDAY 05/17/18 04/21/24 History tamsulosin 0.4 mg capsule 0.4 mg PO QDAY 11/23/20 04/21/24 History cyclobenzaprine 10 mg tablet 10 mg PO TID 03/03/21 04/21/24 History gabapentin 300 mg tablet 300 mg PO BID 03/03/21 04/21/24 History ibuprofen 800 mg tablet 800 mg PO TID PRN Pain 03/03/21 04/21/24 History lisinopril 20 mg tablet 20 mg PO QDAY 03/03/21 04/21/24 History hydrocodone 10 mg-acetaminophen 1 tab PO TID 03/07/24 04/21/24 History 325 mg tablet tadalafil 10 mg tablet (Cialis) 10 mg PO DIRECTED PRN Sexual 03/17/24 04/21/24 History Activity Allergies Allergy/AdvReac Type Severity Reaction Status Date / Time No Known Allergies Allergy Verified 03/13/25 12:30 Exam Vital Signs Temp Pulse Resp BP Pulse Ox O2 Del Method 36.3 C 74 18 97/59 L 95 Room Air 03/14/25 08:00 03/14/25 08:00 03/14/25 08:00 03/14/25 08:00 03/14/25 08:00 03/14/25 08:00 Narrative Exam GENERAL APPEARANCE: Patient seems to be comfortable, adequately hydrated and nourished. HEENT: EOMI, PERRLA. Dry mucosa NECK: Neck supple, no JVD or bruit CARDIOVASCULAR: Heart regular, no murmurs LUNGS/CHEST: Chest clear to auscultation. No rales, rhonchi, wheezing ABDOMEN: Soft, nontender, nondistended. No masses. Normal bowel sounds. EXTREMITIES: No edema, clubbing or cyanosis. SKIN: Skin exam normal without any rashes MUSCULOSKELETAL: Musculoskeletal exam normal He has Thacker PSYCHIATRIC: Normal mood, affect LYMPHATICS: No lymphadenopathy noted NEUROLOGICAL : No neurological deficits Results Labs 03/14/25 04:55 03/14/25 04:55 Labs: Short CBC 03/13/25 03/14/25 Range/Units 12:55 04:55 WBC 14.1 H 9.7 (3.8-10.6) Thou/mm3 Hgb 11.5 L 10.4 L (13.5-16.0) g/dL Hct 34.5 L 30.7 L (41.0-53.0) % Plt Count 352 274 D (140-440) Thou/mm3 BMP 03/13/25 03/14/25 12:55 04:55 Sodium 139 144 Potassium 4.0 3.4 D Chloride 109 H 115 H Carbon Dioxide 21.8 21.7 BUN 35 H 27 H Creatinine 3.2 H 1.6 H D Glucose 119 H 93 Calcium 8.9 8.5 Liver Function 03/13/25 03/14/25 Range/Units 12:55 04:55 Total Bilirubin 0.3 0.3 (0.3-1.2) mg/dL AST 14 10 (0-34) U/L ALT 12 10 (10-49) U/L Alkaline Phosphatase 118 H 97 D (46-116) U/L Albumin 4.3 3.5 D (3.4-4.8) gm/dL Urine 03/13/25 Range/Units 14:31 Urine Color Lt-Yellow (Lt Yel-Yel) Urine Clarity Clear (Clear/Hazy) Urine pH 6.0 (5.0-7.0) Ur Specific [place] 1.015 (1.001-1.035) Urine Protein Trace (Neg - Trace) Urine Glucose (UA) Negative (Negative) Assessment & Plan Assessment and plan (1) OG (acute kidney injury): Status: Acute Assessment and plan: OG most likely related to prerenal azotemia from a hypotension going on for the last few weeks. Patient also has been taking ibuprofen, lisinopril in the setting of hypotension which can worsen renal function, renal ultrasound and CAT scan did not show any hydronephrosis no stones. Agree with gentle IV fluids and hold off on all home medications. (2) Dizziness: Status: Acute Assessment and plan: Combination of pain medication/hypotension. Meds all are held. Head CT negative. Continue with IV fluids (3) Chest pain: Status: Acute Assessment and plan: Currently asymptomatic (4) Hypotension: Status: Acute Assessment and plan: And all his medications. (5) BPH (benign prostatic hyperplasia): Status: Acute Assessment and plan: BPH-was on tamsulosin which was held due to dizziness. Talk to Dr. Krishnamurthy-try finasteride. Additional Assessment & Plan Additional Plan: Thank you Tameka for allowing me to participate in the care of Mr. Perez
--- NOTE | 2025-03-14 11:11 | PC.NURSE ---
COORDINATED ORAL HYDRATION WITH [facility] IN KITCHEN. PER CABR[facility] THEY WILL BRING IT UP TO THE UNIT WHEN IS READY.
--- NOTE | 2025-03-14 11:24 | ESPR_ITS ---
<Statement entered by Eladio Domingo MD - 03/15/25 07:11> Patient was examined with the team including attending physician. Note reviewed, I agree with the discharge plan as documented. - Eladio Domingo MD PGY 3 Disclaimer: The document may contain phonetic/typographic errors due to voice recognition software. Documentation for date of: 03/14/25 Subjective Subjective Interval history: HPI: 69-year-old male with a past medical history of BPH, hypertension, and chronic back pain presented to the ED on 03/13/2025 after having episodes of near syncope for the past 6 weeks. He describes feelings of dizziness and like he needs to pass out that occur about 3-4 times per day that last a few seconds. He denies chest pain, palpitations, or shortness of breath during these episodes. He does admit to tunneling of his vision during these events. The patient took Gazelle, gabapentin, and cyclobenzaprine this morning. Per ED physician history, the patient has also complained about abdominal pain going on for the past few days. A CT of the abdomen pelvis 3 days ago was unremarkable. Patient also endorsed black-colored stool for the past 6 weeks but denied hematemesis. The patient never mentioned any history of black- colored stools to me personally on initial evaluation. 03/14/2025: Vitals stable this morning. Vitals are stable this morning.? Labs are significant for a BUN of 27 that decreased from 35, creatinine of 1.6 but has decreased from 3.2, GFR 47 and apparently his base is around 60. ?Hemoglobin 10.4 down from 11.5.? Chloride 115 from 109. ?Lipid panel was benign minus an HDL of 27. GI was consulted and plans for EGD today. Of note, it was reported that the patient took Gazelle, gabapentin, and cyclobenzaprine the morning of his initial presentation to the emergency department, however patient denies taking any medications today when asked about his initial presentation. Started IV iron (Venofer) and nicotine patch. Will also start oral potassium, refer to PT, restart home statin, and continue maintenance fluids. Will have Gazelle 5/325 as needed if SBP greater than or equal to 95. Exam Vital Signs Temp Pulse Resp BP Pulse Ox O2 Del Method 97.4 F 74 18 97/59 L 95 Room Air 03/14/25 08:00 03/14/25 08:00 03/14/25 08:00 03/14/25 08:00 03/14/25 08:00 03/14/25 08:00 Narrative Exam General: Awake and in no acute distress. Conversational and non-toxic appearing. Neurologic: No gross neurological deficit, and patient able to move all 4 extremities. HEENT: Normocephalic, atraumatic, mucous membranes moist. Pupils reactive to light. Heart: Regular rate and rhythm, normal S1 and S2, no murmurs. Lungs: Clear to auscultation bilaterally with no wheezing or crackles. Abdomen: Pain in the left lower quadrant to palpation. Extremities: No edema. 2+ radial and dorsalis pedis pulses bilaterally. Skin: Warm. Dry. No rash or ecchymoses. Objective Labs 03/15/25 04:28 03/15/25 04:28 Labs: Laboratory Results - last 24 hr 03/13/25 03/13/25 03/13/25 12:55 13:10 14:31 WBC 14.1 H RBC 3.87 L Hgb 11.5 L Hct 34.5 L MCV 89 MCH 29.7 MCHC 33.3 RDW Std Deviation 48.0 H Plt Count 352 Neut % (Auto) 67 Lymph % (Auto) 22 Schleicher % (Auto) 8 Eos % (Auto) 1 Baso % (Auto) 1 Neut # (Auto) 9.5 H Lymph # (Auto) 3.1 Schleicher # (Auto) 1.2 H Eos # (Auto) 0.2 Baso # (Auto) 0.1 Immature Gran # (Auto) 0.04 H Absolute Nucleated RBC 0.00 Immature Gran % 0 Nucleated RBC % 0 PT 10.6 INR 1.0 APTT 22.0 Sodium 139 Potassium 4.0 Chloride 109 H Carbon Dioxide 21.8 Anion Gap 8 BUN 35 H Creatinine 3.2 H Estim Creat Clear Calc 26.3 L eGFR 20 L BUN/Creatinine Ratio 11 L Glucose 119 H Calculated Osmolality 286 Calcium 8.9 Corrected Calcium 8.9 Phosphorus Magnesium Total Bilirubin 0.3 AST 14 ALT 12 Alkaline Phosphatase 118 H Total Protein 7.0 Albumin 4.3 Globulin 2.7 Albumin/Globulin Ratio 1.6 Triglycerides Cholesterol LDL Cholesterol, Calc HDL Cholesterol Cholesterol/HDL Ratio TSH Ur Collection Type Clean Catch Urine Color Lt-Yellow Urine Clarity Clear Urine pH 6.0 Ur Specific [place] 1.015 Urine Protein Trace Urine Glucose (UA) Negative Urine Ketones Negative Urine Blood 1+ A Urine Nitrite Negative Urine Bilirubin Negative Urine Urobilinogen (Auto) Negative Ur Leukocyte Esterase Negative Urine RBC 42 H Urine WBC 2 Ur Squamous Epith Cells < 1 Urine Bacteria None Hyaline Casts < 1 Stool Occult Blood Blood Type A Positive Antibody Screen NEGATIVE Blood Bank Wristband ID Yes 03/13/25 03/14/25 20:33 04:55 WBC 9.7 RBC 3.45 L Hgb 10.4 L Hct 30.7 L MCV 89 MCH 30.1 MCHC 33.9 RDW Std Deviation 46.7 H Plt Count 274 D Neut % (Auto) 55 Lymph % (Auto) 30 Schleicher % (Auto) 11 Eos % (Auto) 3 Baso % (Auto) 1 Neut # (Auto) 5.4 Lymph # (Auto) 2.9 Schleicher # (Auto) 1.0 H Eos # (Auto) 0.3 Baso # (Auto) 0.1 Immature Gran # (Auto) 0.02 H Absolute Nucleated RBC 0.00 Immature Gran % 0 Nucleated RBC % 0 PT 10.7 INR 1.0 APTT 28.2 Sodium 144 Potassium 3.4 D Chloride 115 H Carbon Dioxide 21.7 Anion Gap 7 BUN 27 H Creatinine 1.6 H D Estim Creat Clear Calc 52.6 L eGFR 47 L BUN/Creatinine Ratio 17 Glucose 93 Calculated Osmolality 291 Calcium 8.5 Corrected Calcium 8.9 Phosphorus 3.2 Magnesium 2.2 Total Bilirubin 0.3 AST 10 ALT 10 Alkaline Phosphatase 97 D Total Protein 5.9 Albumin 3.5 D Globulin 2.4 Albumin/Globulin Ratio 1.5 Triglycerides 65 Cholesterol 74 L LDL Cholesterol, Calc 34 HDL Cholesterol 27 L Cholesterol/HDL Ratio 2.7 L TSH 0.96 Ur Collection Type Urine Color Urine Clarity Urine pH Ur Specific [place] Urine Protein Urine Glucose (UA) Urine Ketones Urine Blood Urine Nitrite Urine Bilirubin Urine Urobilinogen (Auto) Ur Leukocyte Esterase Urine RBC Urine WBC Ur Squamous Epith Cells Urine Bacteria Hyaline Casts Stool Occult Blood Negative Blood Type Antibody Screen Blood Bank Wristband ID Quality Measures Quality Measures none Advance care planning discussed with:: patient Assessment & Plan Assessment Current Active Medications: Generic Name Dose Route Start Last Admin Trade Name Freq PRN Reason Stop Dose Admin Acetaminophen 1,000 mg 03/14/25 09:43 Acetaminophen 500 Mg Tablet PO 04/12/25 16:31 Q6H PRN FEVER >99.9 Atorvastatin Calcium 40 mg 03/14/25 21:00 Atorvastatin Calcium 20 Mg Tablet PO 04/13/25 20:59 HS REPLACED BY [facility] Lidocaine 1 patch 03/14/25 10:53 Lidocaine 5% 1 Patch TOP 04/13/25 10:52 UD PRN back pain Ondansetron HCl 4 mg 03/13/25 16:42 Ondansetron Inj 2 Mg/Ml Inj 2 Ml IVP 04/12/25 16:41 Q6H PRN NAUSEA OR VOMITING Protocol Pantoprazole Sodium 40 mg 03/14/25 09:00 03/14/25 09:03 Pantoprazole Inj 40 Mg Vial IVP 04/13/25 08:59 40 mg QDAY MARY KATE Administration Tamsulosin HCl 0.4 mg 03/14/25 11:00 Tamsulosin Hcl 0.4 Mg Capsule PO 04/13/25 10:59 On Hold: 03/14/25 11:00 QDAY MARY KATE Vitamin B Complex/Vit C/Folic Acid 1 tab 03/14/25 09:45 03/14/25 10:27 Vit B12/Vit C/Fa (Nephrovite) Tablet PO 04/13/25 09:44 1 tab QDAY REPLACED BY [facility] Administration Plan Summary: 69-year-old male with a past medical history of hypertension, BPH, and chronic back pain who presented to the ED on 03/13/2025 with a 6-week history of 3-4 episodes per day of dizziness and feeling like he needs to pass out and black stools for the past 6 weeks. #Syncopal episodes secondary to polypharmacy versus cardiovascular versus versus blood loss * For the past 6 weeks, the patient has had 3-4 episodes per day where he feels dizzy and like he needs to pass out for a few seconds with associated tunnel vision * The patient takes Gazelle, cyclobenzaprine, lisinopril, amlodipine, tadalafil, and isosorbide mononitrate at home, all of which can affect blood pressure * Though the patient denies taking all of these medications at once, polypharmacy should still be considered as a secondary cause of the patient's syncopal episodes * It was reported that the patient took Gazelle, gabapentin, and cyclobenzaprine the morning of presentation, which may explain his confusion on initial examination * Patient has had melena, hemoglobin 11.5 on arrival. Less likely that syncope is secondary to anemia, patient is not tachycardic * Syncopal episode secondary to underlying cardiac arrhythmia is considerable but unlikely because the patient denies shortness of breath or palpitations during these episodes * Orthostatic vitals negative * Anion gap negative Plan: * LR maintenance fluids at 100 mL/h * Will continue to hold home medications cyclobenzaprine, lisinopril, amlodipine, tadalafil, and isosorbide mononitrate * Will consider resuming when deemed safe based on hemodynamic stability and patient's mentation * Continue to monitor the patient's mentation, respiratory drive #Melena secondary to upper GI bleed * Patient has had a 6-week history of melanotic stools * Fecal occult blood test was positive in the ED * Hemoglobin 11.5, down trended to 10.4 * GI is on board and plans for endoscopy 03/14/2025 Plan: * Follow-up results of EGD * Trend H&H * Transfuse if hemoglobin below 7 * Started on IV iron 200 mg daily for 5 days #Chronic smoker * Patient has a [id number] history of smoking Plan: * Nicotine patch as needed #OG #BPH * Patient takes tamsulosin, mentions that it helps him urinate * Patient had a large volume of urine drained from his bladder from Thacker catheter in the ED * BUN 35, creatinine 3.2, eGFR 20, considering the presence of acute urinary retention abdominal CT was negative for hydronephrosis because it was performed after the patient's bladder was drained * Baseline creatinine is around 1.0-1.2 * Creatinine has downtrended from 3.2 to 1.6, may reinforce the explanation above Plan: * Continue Thacker * Continue to hold home tamsulosin * Trend BUN, creatinine, eGFR #Hypertension * Patient takes amlodipine 10 mg p.o. daily, lisinopril 20 mg p.o. daily, isosorbide mononitrate 60 mg daily, hydrochlorothiazide 25 mg daily, and nitroglycerin 0.4 mg as needed * Patient presented hypotensive with a BP in the 70s over 40s, is improving Plan: * Maintenance LR fluids at 100 mL/h * Will hold these medications in the setting of hypotension and near syncope * Consider resuming based on hemodynamic stability and the patient's mentation #Coronary artery disease #Hyperlipidemia * Patient had a coronary angiogram with Dr. Dubois on 04/22/2024 that showed a left ventricular systolic function of 55% and a mid segment 40 to 50% occlusion lesion of the left anterior descending artery * Per Dr. Dubois, medical management was continued * Patient takes atorvastatin 40 mg p.o. daily * Lipid panel benign except HDL low at 27 Plan: * Restarted home atorvastatin 40 mg p.o. nightly #Chronic pain * Patient has a history of chronic back pain * Takes Gazelle, gabapentin, and cyclobenzaprine as needed Plan: * Started Gazelle 5/325 for pain scale of 4-10 every 6 hours as needed contingent on SBP 95 or greater Hospital Maintenance: DVT ppx: SCDs, ambulation with PT GI ppx: Pantoprazole 40 mg once daily Diet: N.p.o. pending EGD, oral medications okay IV lines: Peripheral IV Thacker: In place Code status: DNR, intubation okay Dispo: EGD planned for today with GI. Patient was seen and discussed with my attending physician Dr. Yessy NAYAK and my senior resident Dr. Chayo LING PGY-3. Lorne Serrano DO PGY-1. Attending Provider Attestation/Addendum I, Tameka Krishnamurthy DO, attest that I was physically present for the fowler portions of the service and evaluated the patient with the resident and I reviewed and discussed the case with the resident and agree with the resident's findings and plans of care as documented above Patient seen and eval this a.m. Patient is ANO x 3 and states he is feeling well. No acute events overnight. Nephrology at bedside at time of evaluation. Renal function has been much improved. However, blood pressure remains low. Will discontinue all of patient's antihypertensives and Flomax at this time. It is noted that patient has tadalafil and nitroglycerin on his chart. However, patient states that he does not use this medication at home and denies chest pain. Hypotension suspected to be secondary to polypharmacy. Will continue with IV fluid hydration at this time. Plan to DC Thacker catheter tomorrow and start patient on finasteride. Orthostatic hypotension likely secondary to tamsulosin. Orthostatic vitals here in the hospital were negative, but Flomax has been discontinued since admission. Patient did have guaiac positive stool in the ED and has been complaining of black stool for months. However, upon repeat of [facility] on [facility], guaiac was negative. However, patient is pending endoscopy today. Will follow-up with results.
[2025-03-14] MEDS: IRON SUCROSE CPLX INJ 20 MG/ML VIAL 5 ML 100 MG IVP ×2 (11:25→17:13)
--- NOTE | 2025-03-14 11:25 | PC.NURSE ---
DR. ATKINSON AND DR. KATE ROUNDING ON PATIENT. DR. KATE MADE AWARE PT IS NPO FOR EGD AND ORAL HYDRATION ORDER TO START THIS MORNING. VERBAL ORDER TO START ORAL HYDRATION AFTER EGD PROCEDURE. ORDER RECEIVED, READ BACK AND CARRIED OUT.
--- NOTE | 2025-03-14 13:30 | PC.NURSE ---
COORDINATED CARE WITH DR. VELASQUEZ PROCEDURE SCHEDULED FOR 1499.
--- NOTE | 2025-03-14 15:44 | PC.NURSE ---
PATIENT ALERT AND ORIENTED X4, TRANSFER TO OR VIA GURNEY.
[2025-03-14] MEDS: SODIUM CHLORIDE 0.9% 500 ML 500 ML 20 ML IV (16:00)
--- NOTE | 2025-03-14 16:33 | SUR.PHASEI ---
pt received from Or in recovery bay 1. pt asleep but responds to voice, breathing unlabored on 2l nc. v/s stable. report received from Annetta MARSH.
--- NOTE | 2025-03-14 16:50 | PC.NURSE ---
PATIENT BACK FROM OR ALERT AND ORIENTED X3.
--- NOTE | 2025-03-14 17:03 | SUR.PHASEI ---
pt asleep but responds to voice, breathing unlabored on nc 2l. v/s stable. report called to Sheryl Das. pt will be transferred to room at this time.
[2025-03-14] MEDS: RINGERS LACTATED 1000 ML 1,000 ML 100 ML IV (17:14)
[2025-03-14] MEDS: NA SU/NAHCO3/KC/PEG (Golytely) 4,000 ML BTL 4000 ML PO (18:00)
[2025-03-14] MEDS: ATORVASTATIN CALCIUM 20 MG TABLET 40 MG PO (22:13)
[2025-03-15] VITALS (15 sets, daily range): BP systolic 116–153; BP diastolic 66–95; PULSE 67–89; RESP 12–98; TEMP 36.2–37; O2SAT 95–100
[2025-03-15 05:10] LABS: Basophils # (Auto) 0.1 Thou/mm3 (0.0-0.2); Basophils % (Auto) 1 % (0-2.5); Eosinophils # (Auto) 0.3 Thou/mm3 (0.0-0.5); Eosinophils % (Auto) 3 % (0-10); Hematocrit 31.8 % (41.0-53.0); Hemoglobin 10.8 g/dL (13.5-16.0); Immature Granulocytes Auto 0.02 Thou/mm3 (0.00-0.00); Lymphocytes # (Auto) 2.8 Thou/mm3 (1.0-4.8); Lymphocytes % (Auto) 29 % (10-50); Mean Corpuscular HGB Conc 34.0 g/dl (31.0-37.0); Mean Corpuscular Hemoglobin 29.8 pg (25.0-35.0); Mean Corpuscular Volume 88 fL (80-100); Monocytes # (Auto) 1.1 Thou/mm3 (0.0-0.8); Monocytes % (Auto) 11 % (0-12); Neutrophils # (Auto) 5.5 Thou/mm3 (1.8-7.7); Neutrophils % (Auto) 56 % (37-80); Nucleated Red Blood Cell # 0.00 Thou/mm3 (0.00-0.00); Nucleated Red Blood Cell % 0 /100 WBC (0); Platelet Count 300 Thou/mm3 (140-440); RDW Standard Deviation 46.5 fL (35.1-43.9); Red Blood Count 3.63 Miln/mm3 (4.50-5.90); White Blood Count 9.8 Thou/mm3 (3.8-10.6)
[2025-03-15 05:45] LABS: Alanine Aminotransferase 8 U/L (10-49); Albumin, Serum 3.5 gm/dL (3.4-4.8); Albumin/Globulin Ratio 1.5 (1.2-2.2); Alkaline Phosphatase 103 U/L (46-116); Anion Gap 7 (7-16); Aspartate Amino Transferase 13 U/L (0-34); BUN/Creatinine Ratio 12 Ratio (12-20); Bilirubin,Total 0.4 mg/dL (0.3-1.2); Blood Urea Nitrogen 12 mg/dL (9-23); Calcium 8.6 mg/dL (8.3-10.6); Calcium (Corrected) 9.0 mg/dL (8.5-10.1); Carbon Dioxide 24.6 mMol/L (20.0-31.0); Chloride 114 mMol/L (98-107); Creatinine (Component) 1.0 mg/dL (0.6-1.3); Estimated Creatinine Clearance 84.2 mL/min (>60); Globulin 2.3 gm/dL (2.3-3.5); Glucose 83 mg/dL (74-106); Osmolality,Calculated 289 (275-295); Potassium 3.4 mMol/L (3.4-5.1); Sodium 146 mMol/L (136-145); Total Protein 5.8 gm/dL (5.7-8.2); eGFR > 60 See Note
--- NOTE | 2025-03-15 07:51 | ESPR_ITS ---
Documentation for date of: 03/15/25 Subjective Subjective Interval history: History of Present Illness 69-year-old male with a past medical history of BPH, hypertension, and chronic back pain presented to the ED on 03/13/2025 after having episodes of near syncope for the past 6 weeks. He describes feelings of dizziness and like he needs to pass out that occur about 3-4 times per day that last a few seconds. He denies chest pain, palpitations, or shortness of breath during these episodes. He does admit to tunneling of his vision during these events. Nephrology was consulted for management of OG. ED course: Vitals on arrival: BP 77/52, pulse 82, respiratory rate 19, O2 sat 96% on room air. Labs: White blood cell 14.1, hemoglobin 11.5, BUN 35, creatinine 3.2, eGFR of 20, glucose 119, urine RBCs 42. Other labs: Sodium 139, potassium 4.0, chloride 109, carbon dioxide 21.8, anion gap 8. Imaging: Head CT was negative for acute hemorrhage mass effect or midline shift. EKG showed a sinus rhythm with a rate of [address] segment changes. Renal ultrasound showed bilateral renal cortical thinning, mild bilateral renal parenchymal scar formation, there was no hydronephrosis, there is an 18 mm left renal cyst. Abdominal CT showed no renal or ureteral calculi, no hydronephrosis, normal appendix, and no bowel obstruction. In the ED, patient was started on IV fluids and received a rectal exam that was slightly positive for occult blood. He also had a Thacker placed and drained a significant unspecified volume of urine. Past medical history: Hypertension, BPH Surgical history: Hip and knee replacement Family history: Patient denies any family history of medical problems Social history: Patient has smoked 1 pack of cigarettes daily for 50 years, denies alcohol or illicit drugs Allergies: No known drug allergies Home medications: amlodipine, tamsulosin, MINNIE [place], cyclobenzaprine, ibuprofen (recently discontinued), lisinopril, [place], tadalafil as needed, isosorbide as needed, hydrochlorothiazide 03/14/2025: Patient currently seen in medical floor. Dr. Krishnamurthy at bedside. Thacker catheter was inserted and the patient making good urine. Her creatinine markedly improved today. Blood pressure acceptable. Off all his home medications. 03/15/2025: No Overnight events. Labs reviewed and patient examined at the bedside. Patient does not have any other complaints. Cr: 1.0, BUN:12, eGFR>60, Urine Output: 3.8L Received EGD yesterday. Showed marked improvement of creatinine. Continue IVF Exam Vital Signs Temp Pulse Resp BP Pulse Ox O2 Del Method O2 Flow Rate 98.2 F 72 18 140/95 H 96 Room Air 2 03/15/25 04:00 03/15/25 07:33 03/15/25 07:33 03/15/25 04:00 03/15/25 04:00 03/15/25 04:00 03/14/25 17:00 Narrative Exam General: No acute distress, well nourished, AAO x3 Eye: PERRL, EOMI, normal conjunctiva, no scleral icterus HENT: Normocephalic, atraumatic, hearing intact to conversation at normal volume, moist oral mucosa Neck: Supple, non-tender, no JVD, no lymphadenopathy Lungs: Non-labored respirations, symmetric chest rise, Clear to auscultate bilaterally, No wheezing, rhonchi, crackles Heart: Peripheral pulses intact bilaterally, Regular Rate and Rhythm. Abdomen: Soft, non-tender, non-distended, no palpable masses Musculoskeletal: Normal range of motion and strength, No cyanosis or edema, No visible joint swelling Skin: Skin is warm, dry, no rashes or lesions. Psychiatric: Cooperative, appropriate mood and affect, Awake and alert, not agitated Neuro: Cranial nerves II-XII grossly intact. Sensations intact to light touch. Objective Labs 03/16/25 04:20 03/16/25 04:20 Labs: Laboratory Results - last 24 hr 03/13/25 03/15/25 20:33 04:28 WBC 9.8 RBC 3.63 L Hgb 10.8 L Hct 31.8 L MCV 88 MCH 29.8 MCHC 34.0 RDW Std Deviation 46.5 H Plt Count 300 Neut % (Auto) 56 Lymph % (Auto) 29 Lyman % (Auto) 11 Eos % (Auto) 3 Baso % (Auto) 1 Neut # (Auto) 5.5 Lymph # (Auto) 2.8 Lyman # (Auto) 1.1 H Eos # (Auto) 0.3 Baso # (Auto) 0.1 Immature Gran # (Auto) 0.02 H Absolute Nucleated RBC 0.00 Immature Gran % 0 Nucleated RBC % 0 Sodium 146 H Potassium 3.4 Chloride 114 H Carbon Dioxide 24.6 Anion Gap 7 BUN 12 Creatinine 1.0 D Estim Creat Clear Calc 84.2 eGFR > 60 BUN/Creatinine Ratio 12 Glucose 83 Calculated Osmolality 289 Calcium 8.6 Corrected Calcium 9.0 Total Bilirubin 0.4 AST 13 ALT 8 L Alkaline Phosphatase 103 Total Protein 5.8 Albumin 3.5 Globulin 2.3 Albumin/Globulin Ratio 1.5 Stool Occult Blood Negative Quality Measures Quality Measures none Advance care planning discussed with:: patient Assessment & Plan Assessment Current Active Medications: Generic Name Dose Route Start Last Admin Trade Name Freq PRN Reason Stop Dose Admin Acetaminophen 1,000 mg 03/14/25 09:43 Acetaminophen 500 Mg Tablet PO 04/12/25 16:31 Q6H PRN FEVER >99.9 Hydrocodone Bitart/Acetaminophen 1 tab 03/14/25 12:06 Hydrocodone/Apap 5/325 Tablet PO 03/19/25 12:05 Q6HR PRN Pain 4-10 Atorvastatin Calcium 40 mg 03/14/25 21:00 03/14/25 22:13 Atorvastatin Calcium 20 Mg Tablet PO 04/13/25 20:59 40 mg HS MARY KATE Administration Sodium Chloride 500 mls @ 20 mls/hr 03/14/25 16:00 03/14/25 16:00 Ns IV 03/15/25 15:59 20 mls/hr .Q24H ONE Administration Iron Sucrose 200 mg 03/15/25 09:00 Iron Sucrose Cplx Inj 20 Mg/Ml Vial 5 Ml IVP 03/18/25 08:59 QDAY MARY KATE Lidocaine 1 patch 03/14/25 10:53 Lidocaine 5% 1 Patch TOP 04/13/25 10:52 UD PRN back pain Ondansetron HCl 4 mg 03/13/25 16:42 Ondansetron Inj 2 Mg/Ml Inj 2 Ml IVP 04/12/25 16:41 Q6H PRN NAUSEA OR VOMITING Protocol Pantoprazole Sodium 40 mg 03/14/25 09:00 03/14/25 09:03 Pantoprazole Inj 40 Mg Vial IVP 04/13/25 08:59 40 mg QDAY MARY KATE Administration Tamsulosin HCl 0.4 mg 03/14/25 11:00 Tamsulosin Hcl 0.4 Mg Capsule PO 04/13/25 10:59 On Hold: 03/14/25 11:00 QDAY [facility] Vitamin B Complex/Vit C/Folic Acid 1 tab 03/14/25 09:45 03/14/25 10:27 Vit B12/Vit C/Fa (Nephrovite) Tablet PO 04/13/25 09:44 1 tab QDAY [facility] Administration Plan 69-year-old male with a past medical history of BPH, hypertension, and chronic back pain presented to the ED on 03/13/2025 after having episodes of near syncope for the past 6 weeks. Nephrology was consulted for management of OG. #OG #BPH -Likely prerenal azotemia from a hypotension going on for the last few weeks. -Taking ibuprofen, lisinopril in the setting of hypotension which can worsen renal function -Renal ultrasound and CAT scan did not show any hydronephrosis no stones. -Currently, Cr: 1.0, BUN:12, eGFR>60, Urine Output: 3.8L. -Showed marked improvement of creatinine. Continue IVF Plan: -Continue 0.5 L IV NS 20ml/hr maintenance fluid -Avoid nephrotoxins -Renally dose medication #Syncopal episodes secondary to polypharmacy versus cardiovascular versus versus blood loss #Melena secondary to upper GI bleed #Chronic smoker #Hypertension #Coronary artery disease #Hyperlipidemia #Chronic pain -Management per Primary Hospitalist team Thank you for allowing us to participate in the care of your patient. Assessment and plan discussed with my attending physician Dr. Chrissie Corrales (PGY-1)- Internal medicine resident Attending Provider Attestation/Addendum Patient seen and examined with resident physician Dr. Corrales. Note reviewed, agree with findings and recommendations. Patient feeling better. He will be discharged on finasteride. Follow-up with urology as an outpatient
[2025-03-15] MEDS: VIT B12/Vit C/FA (Nephrovite) TABLET 1 TAB PO (09:33)
[2025-03-15] MEDS: POTASSIUM CHLORIDE 10% 20 MEQ/15 ML UDC 40 MEQ PO (09:33)
--- NOTE | 2025-03-15 12:06 | ESPR_ITS ---
<Statement entered by Keven Stuart MD - 03/15/25 13:41> No acute overnight events. Seen and examined at bedside and currently prepping for colonoscopy. No longer reports abdominal pain. Thacker discontinued. Vital signs stable, hemoglobin stable, CHEM panel largely unremarkable. Will follow- up on colonoscopy results if patient is clear. ----- Note reviewed and agree with care plan as documented. Please refer to the note below for further details. Plan discussed with attending physician Dr. Yessy Stuart MD PGY-2 Internal Medicine Documentation for date of: 03/15/25 Subjective Subjective Interval history: 69-year-old male with a past medical history of BPH, hypertension, and chronic back pain presented to the ED on 03/13/2025 after having episodes of near syncope for the past 6 weeks. He describes feelings of dizziness and like he needs to pass out that occur about 3-4 times per day that last a few seconds. He denies chest pain, palpitations, or shortness of breath during these episodes. He does admit to tunneling of his vision during these events. The patient took [place] and cyclobenzaprine this morning. Per ED physician history, the patient has also complained about abdominal pain going on for the past few days. A CT of the abdomen pelvis 3 days ago was unremarkable. Patient also endorsed black-colored stool for the past 6 weeks but denied hematemesis. 03/15/25: No acute events overnight. Patient was seen at bedside today morning. Was resting comfortably, clear liquid food tray in the room and the patient is undergoing golytely bowel prep for the planned colonoscopy. Patient denies any pain or discomfort, looking forward to going home post colonoscopy. Exam Vital Signs Temp Pulse Resp BP Pulse Ox O2 Del Method O2 Flow Rate 97.7 F 78 18 136/78 H 97 Room Air 2 03/15/25 08:00 03/15/25 08:00 03/15/25 08:00 03/15/25 08:00 03/15/25 08:00 03/15/25 08:00 03/14/25 17:00 Narrative Exam General: Patient is fully alert and oriented. In no acute distress. Cardio: RRR, no murmurs, gallops or rubs appreciated. Resp: Normal lung sounds, no rales or wheezing auscultated. MSK/ Extremities: No muscle or joint pain on any movement. No bruising or skin changes visible. No presence of trace or pitting edema in lower extremities bilaterally, dorsalis pedis pulses +2 bilaterally GI: No abdominal distension, normal bowel sounds. Tenderness to palpation in left lower quadrant, no tenderness in any other area. Neuro: AAOx3, no focal motor or sensory deficits in the UE or LE bilat Psych: Good judgement, thought and behavior. Cooperative Objective Labs 03/16/25 04:20 03/16/25 04:20 Labs: Laboratory Results - last 24 hr 03/15/25 04:28 WBC 9.8 RBC 3.63 L Hgb 10.8 L Hct 31.8 L MCV 88 MCH 29.8 MCHC 34.0 RDW Std Deviation 46.5 H Plt Count 300 Neut % (Auto) 56 Lymph % (Auto) 29 [place] % (Auto) 11 Eos % (Auto) 3 Baso % (Auto) 1 Neut # (Auto) 5.5 Lymph # (Auto) 2.8 [place]pson # (Auto) 1.1 H Eos # (Auto) 0.3 Baso # (Auto) 0.1 Immature Gran # (Auto) 0.02 H Absolute Nucleated RBC 0.00 Immature Gran % 0 Nucleated RBC % 0 Sodium 146 H Potassium 3.4 Chloride 114 H Carbon Dioxide 24.6 Anion Gap 7 BUN 12 Creatinine 1.0 D Estim Creat Clear Calc 84.2 eGFR > 60 BUN/Creatinine Ratio 12 Glucose 83 Calculated Osmolality 289 Calcium 8.6 Corrected Calcium 9.0 Total Bilirubin 0.4 AST 13 ALT 8 L Alkaline Phosphatase 103 Total Protein 5.8 Albumin 3.5 Globulin 2.3 Albumin/Globulin Ratio 1.5 Quality Measures Quality Measures none Advance care planning discussed with:: patient Assessment & Plan Assessment Current Active Medications: Generic Name Dose Route Start Last Admin Trade Name Freq PRN Reason Stop Dose Admin Acetaminophen 1,000 mg 03/14/25 09:43 Acetaminophen 500 Mg Tablet PO 04/12/25 16:31 Q6H PRN FEVER >99.9 Hydrocodone Bitart/Acetaminophen 1 tab 03/14/25 12:06 Hydrocodone/Apap 5/325 Tablet PO 03/19/25 12:05 Q6HR PRN Pain 4-10 Atorvastatin Calcium 40 mg 03/14/25 21:00 03/14/25 22:13 Atorvastatin Calcium 20 Mg Tablet PO 04/13/25 20:59 40 mg HS MARY KATE Administration Sodium Chloride 500 mls @ 20 mls/hr 03/14/25 16:00 03/14/25 16:00 Ns IV 03/15/25 15:59 20 mls/hr .Q24H ONE Administration Lidocaine 1 patch 03/14/25 10:53 Lidocaine 5% 1 Patch TOP 04/13/25 10:52 UD PRN back pain Ondansetron HCl 4 mg 03/13/25 16:42 Ondansetron Inj 2 Mg/Ml Inj 2 Ml IVP 04/12/25 16:41 Q6H PRN NAUSEA OR VOMITING Protocol Pantoprazole Sodium 40 mg 03/16/25 09:00 Pantoprazole 40 Mg Tablet PO 04/15/25 08:59 QDAY MARY KATE Tamsulosin HCl 0.4 mg 03/14/25 11:00 Tamsulosin Hcl 0.4 Mg Capsule PO 04/13/25 10:59 On Hold: 03/14/25 11:00 QDAY [facility] Vitamin B Complex/Vit C/Folic Acid 1 tab 03/14/25 09:45 03/15/25 09:33 Vit B12/Vit C/Fa (Nephrovite) Tablet PO 04/13/25 09:44 1 tab QDAY [facility] Administration Plan 69-year-old male with a past medical history of hypertension, BPH, and chronic back pain who presented to the ED on 03/13/2025 with a 6-week history of 3-4 episodes per day of dizziness and feeling like he needs to pass out and black stools for the past 6 weeks. S/P EGD, pending colonoscopy. #Syncopal episodes secondary to polypharmacy versus cardiovascular versus blood loss * For the past 6 weeks, the patient has had 3-4 episodes per day where he feels dizzy and like he needs to pass out for a few seconds with associated tunnel vision * The patient takes [place], cyclobenzaprine, lisinopril, amlodipine, tadalafil, and isosorbide mononitrate at home, all of which can affect blood pressure * Though the patient denies taking all of these medications at once, polypharmacy should still be considered as a secondary cause of the patient's syncopal episodes * It was reported that the patient took [place], gabapentin, and cyclobenzaprine the morning of presentation, which may explain his confusion on initial examination * Patient has had melena, hemoglobin 11.5 on arrival. Less likely that syncope is secondary to anemia, patient is not tachycardic * Syncopal episode secondary to underlying cardiac arrhythmia is considerable but unlikely because the patient denies shortness of breath or palpitations during these episodes * Orthostatic vitals negative * Anion gap negative Plan: * LR maintenance fluids at 100 mL/h * Will continue to hold home medications cyclobenzaprine, lisinopril, amlodipine, tadalafil, and isosorbide mononitrate * Will consider resuming when deemed safe based on hemodynamic stability and patient's mentation * Continue to monitor the patient's mentation, respiratory drive #Melena secondary to upper GI bleed * Patient has had a 6-week history of melanotic stools * Fecal occult blood test was positive in the ED * Hemoglobin 11.5, down trended to 10.4 * 03/14/2025 EGD: Esophagitis, Biopsies performed, gastritis characterized by erythema, normal second portion of duodenum * Colonoscopy planned for today. Plan: * Colonoscopy pending * Trend H&H * Transfuse if hemoglobin below 7 * Started on IV iron 200 mg daily for 5 days #Chronic smoker * Patient has a [id number] history of smoking Plan: * Nicotine patch as needed #OG- improving #BPH * Patient takes tamsulosin, mentions that it helps him urinate * Patient had a large volume of urine drained from his bladder from Thacker catheter in the ED * BUN 12 (35 on admission), creatinine 1.0 (3.2 on admission), eGFR 60 (20 on admission). * Baseline creatinine is around 1.0-1.2 Plan: * Continue Thacker * Continue to hold home tamsulosin * Trend BUN, creatinine, eGFR #Hypertension * Patient takes amlodipine 10 mg p.o. daily, lisinopril 20 mg p.o. daily, isosorbide mononitrate 60 mg daily, hydrochlorothiazide 25 mg daily, and nitroglycerin 0.4 mg as needed * Patient presented hypotensive with a BP in the 70s over 40s, is improving Plan: * Maintenance LR fluids at 100 mL/h * Will hold these medications in the setting of hypotension and near syncope * Consider resuming based on hemodynamic stability and the patient's mentation #Coronary artery disease #Hyperlipidemia * Patient had a coronary angiogram with Dr. Dubois on 04/22/2024 that showed a left ventricular systolic function of 55% and a mid segment 40 to 50% occlusion lesion of the left anterior descending artery * Per Dr. Dbuois, medical management was continued * Patient takes atorvastatin 40 mg p.o. daily * Lipid panel benign except HDL low at 27 Plan: * Restarted home atorvastatin 40 mg p.o. nightly #Chronic pain * Patient has a history of chronic back pain * Takes [place], gabapentin, and cyclobenzaprine as needed Plan: * Started [place] 5/325 for pain scale of 4-10 every 6 hours as needed contingent on SBP 95 or greater Hospital Maintenance: DVT ppx: SCDs, ambulation with PT GI ppx: Pantoprazole 40 mg once daily Diet: Clear liquid diet pending colonoscopy IV lines: Peripheral IV Thacker: In place Code status: DNR, intubation okay Dispo: Pending colonoscopy. Patient was seen and discussed with my attending physician Dr. Yessy NAYAK and my senior resident Dr. Domingo and Dr. Jericho Stuart. Chantelle Graves [facility] Attending Provider Attestation/Addendum Tameka Nowak DO, attest that I was physically present for the fowler portions of the service and evaluated the patient with the resident and I reviewed and discussed the case with the resident and agree with the resident's findings and plans of care as documented above Patient seen and evaluated this AM. Patient reports feeling well, no dizziness or lightheadedness. BP much improved. Cr back at baseline. Thacker catheter was removed, will start finasteride. Pending colonoscopy this evening. Patient reports resolution of LLQ pain after colon prep. EGD was done yesterday showing esophagitis and gastritis. H/H otherwise stable. Anticipate DC within next 24h.
--- NOTE | 2025-03-15 14:21 | PC.SS ---
Rounding note: Colonscopy pending for today. Discharging home when medically clear.
[2025-03-15] MEDS: RINGERS LACTATED 1000 ML 1,000 ML 20 ML IV (15:29)
--- NOTE | 2025-03-15 15:59 | SUR.PHASEI ---
pt received from OR in recovery bay 2. pt asleep but responds to voice, breathing unlabored on nc 4l. v/s stable. report received from Ebonie MARSH.
--- NOTE | 2025-03-15 16:44 | SUR.PHASEI ---
pt awake and alert, breathing unlabored on room air. v/s stable. report called to Cassandra Das. pt will be transferred to room at this time.
[2025-03-15] MEDS: ATORVASTATIN CALCIUM 20 MG TABLET 40 MG PO (21:04)
[2025-03-16] VITALS: BP 130/67; PULSE 76; RESP 18; TEMP 37.1; O2SAT 96
[2025-03-16 04:00] VITALS: BP 154/92; PULSE 80; RESP 18; TEMP 36.9; O2SAT 98
[2025-03-16 05:20] LABS: Basophils # (Auto) 0.1 Thou/mm3 (0.0-0.2); Basophils % (Auto) 1 % (0-2.5); Eosinophils # (Auto) 0.2 Thou/mm3 (0.0-0.5); Eosinophils % (Auto) 2 % (0-10); Hematocrit 34.4 % (41.0-53.0); Hemoglobin 11.7 g/dL (13.5-16.0); Immature Granulocytes Auto 0.03 Thou/mm3 (0.00-0.00); Lymphocytes # (Auto) 2.6 Thou/mm3 (1.0-4.8); Lymphocytes % (Auto) 26 % (10-50); Mean Corpuscular HGB Conc 34.0 g/dl (31.0-37.0); Mean Corpuscular Hemoglobin 29.9 pg (25.0-35.0); Mean Corpuscular Volume 88 fL (80-100); Monocytes # (Auto) 0.9 Thou/mm3 (0.0-0.8); Monocytes % (Auto) 9 % (0-12); Neutrophils # (Auto) 6.0 Thou/mm3 (1.8-7.7); Neutrophils % (Auto) 61 % (37-80); Nucleated Red Blood Cell # 0.00 Thou/mm3 (0.00-0.00); Nucleated Red Blood Cell % 0 /100 WBC (0); Platelet Count 249 Thou/mm3 (140-440); RDW Standard Deviation 46.4 fL (35.1-43.9); Red Blood Count 3.91 Miln/mm3 (4.50-5.90); White Blood Count 9.9 Thou/mm3 (3.8-10.6)
[2025-03-16 05:43] LABS: Alanine Aminotransferase 10 U/L (10-49); Albumin, Serum 3.8 gm/dL (3.4-4.8); Albumin/Globulin Ratio 1.6 (1.2-2.2); Alkaline Phosphatase 110 U/L (46-116); Anion Gap 9 (7-16); Aspartate Amino Transferase 17 U/L (0-34); BUN/Creatinine Ratio 7 Ratio (12-20); Bilirubin,Total 0.6 mg/dL (0.3-1.2); Blood Urea Nitrogen 7 mg/dL (9-23); Calcium 9.0 mg/dL (8.3-10.6); Calcium (Corrected) 9.2 mg/dL (8.5-10.1); Carbon Dioxide 22.1 mMol/L (20.0-31.0); Chloride 115 mMol/L (98-107); Creatinine (Component) 1.0 mg/dL (0.6-1.3); Estimated Creatinine Clearance 84.2 mL/min (>60); Globulin 2.4 gm/dL (2.3-3.5); Glucose 84 mg/dL (74-106); Osmolality,Calculated 287 (275-295); Potassium 3.4 mMol/L (3.4-5.1); Sodium 146 mMol/L (136-145); Total Protein 6.2 gm/dL (5.7-8.2); eGFR > 60 See Note
[2025-03-16 07:58] VITALS: BP 156/90; PULSE 82; RESP 18; TEMP 36.8; O2SAT 96
[2025-03-16] MEDS: VIT B12/Vit C/FA (Nephrovite) TABLET 1 TAB PO (08:23)
[2025-03-16] MEDS: PANTOPRAZOLE 40 MG TABLET PO (08:23)
--- NOTE | 2025-03-16 09:00 | ESPR_ITS ---
Documentation for date of: 03/16/25 Subjective Subjective Interval history: 69-year-old male with a past medical history of BPH, hypertension, and chronic back pain presented to the ED on 03/13/2025 after having episodes of near syncope for the past 6 weeks. He describes feelings of dizziness and like he needs to pass out that occur about 3-4 times per day that last a few seconds. He denies chest pain, palpitations, or shortness of breath during these episodes. He does admit to tunneling of his vision during these events. Nephrology was consulted for management of OG. ED course: Vitals on arrival: BP 77/52, pulse 82, respiratory rate 19, O2 sat 96% on room air. Labs: White blood cell 14.1, hemoglobin 11.5, BUN 35, creatinine 3.2, eGFR of 20, glucose 119, urine RBCs 42. Other labs: Sodium 139, potassium 4.0, chloride 109, carbon dioxide 21.8, anion gap 8. Imaging: Head CT was negative for acute hemorrhage mass effect or midline shift. EKG showed a sinus rhythm with a rate of [address] segment changes. Renal ultrasound showed bilateral renal cortical thinning, mild bilateral renal parenchymal scar formation, there was no hydronephrosis, there is an 18 mm left renal cyst. Abdominal CT showed no renal or ureteral calculi, no hydronephrosis, normal appendix, and no bowel obstruction. In the ED, patient was started on IV fluids and received a rectal exam that was slightly positive for occult blood. He also had a Thacker placed and drained a significant unspecified volume of urine. Past medical history: Hypertension, BPH Surgical history: Hip and knee replacement Family history: Patient denies any family history of medical problems Social history: Patient has smoked 1 pack of cigarettes daily for 50 years, denies alcohol or illicit drugs Allergies: No known drug allergies Home medications: amlodipine, tamsulosin, MINNIE Bhanu, cyclobenzaprine, ibuprofen (recently discontinued), lisinopril, [place], tadalafil as needed, isosorbide as needed, hydrochlorothiazide 03/14/2025: Patient currently seen in medical floor. Dr. Krishnamurthy at bedside. Thacker catheter was inserted and the patient making good urine. Her creatinine markedly improved today. Blood pressure acceptable. Off all his home medications. 03/15/2025: No Overnight events. Labs reviewed and patient examined at the bedside. Patient does not have any other complaints. Cr: 1.0, BUN:12, eGFR>60, Urine Output: 3.8L Received EGD yesterday. Showed marked improvement of creatinine. Continue IVF 03/16/2025: Labs reviewed and patient examined at the bedside. Patient does not have any other complaints. Cr: 1.0, BUN:7, eGFR>60, Continue IVF Exam Vital Signs Temp Pulse Resp BP Pulse Ox O2 Del Method O2 Flow Rate 98.3 F 82 18 156/90 H 96 Room Air 2 03/16/25 07:58 03/16/25 07:58 03/16/25 07:58 03/16/25 07:58 03/16/25 07:58 03/16/25 07:58 03/15/25 16:10 Narrative Exam General: No acute distress, well nourished, AAO x3 Eye: PERRL, EOMI, normal conjunctiva, no scleral icterus HENT: Normocephalic, atraumatic, hearing intact to conversation at normal volume, moist oral mucosa Neck: Supple, non-tender, no JVD, no lymphadenopathy Lungs: Non-labored respirations, symmetric chest rise, Clear to auscultate bilaterally, No wheezing, rhonchi, crackles Heart: Peripheral pulses intact bilaterally, Regular Rate and Rhythm. Abdomen: Soft, non-tender, non-distended, no palpable masses Musculoskeletal: Normal range of motion and strength, No cyanosis or edema, No visible joint swelling Skin: Skin is warm, dry, no rashes or lesions. Psychiatric: Cooperative, appropriate mood and affect, Awake and alert, not agitated Neuro: Cranial nerves II-XII grossly intact. Sensations intact to light touch. Objective Labs 03/16/25 04:20 03/16/25 04:20 Labs: Laboratory Results - last 24 hr 03/16/25 04:20 WBC 9.9 RBC 3.91 L Hgb 11.7 L Hct 34.4 L MCV 88 MCH 29.9 MCHC 34.0 RDW Std Deviation 46.4 H Plt Count 249 D Neut % (Auto) 61 Lymph % (Auto) 26 [place] % (Auto) 9 Eos % (Auto) 2 Baso % (Auto) 1 Neut # (Auto) 6.0 Lymph # (Auto) 2.6 [place] # (Auto) 0.9 H Eos # (Auto) 0.2 Baso # (Auto) 0.1 Immature Gran # (Auto) 0.03 H Absolute Nucleated RBC 0.00 Immature Gran % 0 Nucleated RBC % 0 Sodium 146 H Potassium 3.4 Chloride 115 H Carbon Dioxide 22.1 Anion Gap 9 BUN 7 L Creatinine 1.0 Estim Creat Clear Calc 84.2 eGFR > 60 BUN/Creatinine Ratio 7 L Glucose 84 Calculated Osmolality 287 Calcium 9.0 Corrected Calcium 9.2 Total Bilirubin 0.6 AST 17 ALT 10 Alkaline Phosphatase 110 Total Protein 6.2 Albumin 3.8 Globulin 2.4 Albumin/Globulin Ratio 1.6 Quality Measures Quality Measures none Advance care planning discussed with:: patient Assessment & Plan Assessment Current Active Medications: Generic Name Dose Route Start Last Admin Trade Name Freq PRN Reason Stop Dose Admin Acetaminophen 1,000 mg 03/14/25 09:43 Acetaminophen 500 Mg Tablet PO 04/12/25 16:31 Q6H PRN FEVER >99.9 Hydrocodone Bitart/Acetaminophen 1 tab 03/14/25 12:06 Hydrocodone/Apap 5/325 Tablet PO 03/19/25 12:05 Q6HR PRN Pain 4-10 Atorvastatin Calcium 40 mg 03/14/25 21:00 03/15/25 21:04 Atorvastatin Calcium 20 Mg Tablet PO 04/13/25 20:59 40 mg HS MARY KATE Administration Lactated Ringer's 1,000 mls @ 20 mls/hr 03/15/25 15:29 03/15/25 15:29 Lactated Ringers IV 03/16/25 15:28 20 mls/hr .Q24H ONE Administration Lidocaine 1 patch 03/14/25 10:53 Lidocaine 5% 1 Patch TOP 04/13/25 10:52 UD PRN back pain Ondansetron HCl 4 mg 03/13/25 16:42 Ondansetron Inj 2 Mg/Ml Inj 2 Ml IVP 04/12/25 16:41 Q6H PRN NAUSEA OR VOMITING Protocol Pantoprazole Sodium 40 mg 03/16/25 09:00 03/16/25 08:23 Pantoprazole 40 Mg Tablet PO 04/15/25 08:59 40 mg QDAY MARY KATE Administration Tamsulosin HCl 0.4 mg 03/14/25 11:00 Tamsulosin Hcl 0.4 Mg Capsule PO 04/13/25 10:59 On Hold: 03/14/25 11:00 QDAY [facility] Vitamin B Complex/Vit C/Folic Acid 1 tab 03/14/25 09:45 03/16/25 08:23 Vit B12/Vit C/Fa (Nephrovite) Tablet PO 04/13/25 09:44 1 tab QDAY [facility] Administration Plan 69-year-old male with a past medical history of BPH, hypertension, and chronic back pain presented to the ED on 03/13/2025 after having episodes of near syncope for the past 6 weeks. Nephrology was consulted for management of OG. #OG #BPH -Likely prerenal azotemia from a hypotension going on for the last few weeks. -Taking ibuprofen, lisinopril in the setting of hypotension which can worsen renal function -Renal ultrasound and CAT scan did not show any hydronephrosis no stones. -Currently, Cr: 1.0, BUN:7, eGFR>60 -Showed marked improvement of creatinine. Continue IVF Plan: -Continue 0.5 L IV NS 20ml/hr maintenance fluid -Avoid nephrotoxins -Renally dose medication #Syncopal episodes secondary to polypharmacy versus cardiovascular versus versus blood loss #Melena secondary to upper GI bleed #Chronic smoker #Hypertension #Coronary artery disease #Hyperlipidemia #Chronic pain -Management per Primary Hospitalist team Thank you for allowing us to participate in the care of your patient. Patient is stable in nephrology standpoint. No further recommendations. Assessment and plan discussed with my attending physician Dr. Chrissie Corrales (PGY-1)- Internal medicine resident Attending Provider Attestation/Addendum Patient seen and examined with resident physician Dr. Corrales. Note reviewed, agree with findings and recommendations. Patient currently seen in medical floor. Resting comfortably. Will be discharged on finasteride. Colonoscopy and endoscopy done. Left lower quadrant abdominal pain tad better
[2025-03-16] MEDS: TAMSULOSIN HCL 0.4 MG CAPSULE PO (09:39)
--- NOTE | 2025-03-16 10:09 | ESDS_ITS ---
<Statement entered by Tameka Krishnamurthy DO - 03/17/25 07:38> I, Tameka Krishnamurthy DO, attest that I was physically present for the fowler portions of the service and evaluated the patient with the resident and I reviewed and discussed the case with the resident and agree with the resident's findings and plans of care as documented above <Statement entered by Keven Stuart MD - 03/16/25 17:13> Note reviewed and agree with care plan as documented. Please refer to the note below for further details. Plan discussed with attending physician Dr. Yessy Stuart MD PGY-2 Internal Medicine Planned Discharge Date 03/16/25 DS: Providers Provider Date of admission: 03/13/25 16:15 Primary care physician: MEL Barry Admitting Provider: Tameka Krishnamurthy DO Attending Provider on Admission: Tameka Krishnamurthy DO Consults: 03/13/25 16:43 Consult to Nephrology Routine Comment: Consulting Provider: Hamlet Alejo 03/13/25 18:13 Consult to Gastroenterology Routine Comment: Consulting Provider: Adriana Crouch 03/13/25 20:55 Referral Smoking Cessation Counseling Routine Comment: Smoking Cessation Education Needed 03/14/25 13:12 Referral Physical Therapy Routine Comment: Physician Instructions: Instructions: Patient has had syncopal episodes over the past few weeks. Needs to ambulate to help prevent DVTs. Attending Provider on DC: Cherie Harris Discharging Provider: Cherie Harris DS: Diagnosis Problem List Completed Was Problem List Reviewed/Reconciled?: Yes Hospital Course Hospital Course Hospital course: Chris Martini, 69-year-old male with a past medical history of BPH, hypertension, and chronic back pain presented to the ED on 03/13/2025 after having episodes of near syncope and black colored stools for the past 6 weeks. In the ED patient had blood pressure of 77/52, other vital signs stable and CBC remarkable for leukocytosis of 14, hemoglobin of 11.5 which seems to be patient's baseline. CHEM panel shows creatinine at 3.2 with baseline appearing to be 0.9-1.1. Patient admitted for management of GI bleed, hypotension, syncope, and OG. OG was adressed with fluids, and returned back to baseline. Home blood pressure medications were held and patient got fluid resusitation to address hypotension. Syncopal event was likely in the setting of hypotension due to polypharmacy with [place], cyclobenzaprine, lisinopril, amlodopine, tadalafil and isosorbidide mononitrate. All BP medications were help and patients symtpoms improved. GI (Dr. Crouch) was consulted for management of possible GI bleed. On 03/14/24 patient got an EGD which showed esophagitis and gastritis but no active bleed. To further explore source of bleeding on 03/15/25 patient got a colonoscopy which was remarkable for internal hemorrhoids which were banded, showed moderate diverticulosis in sigmoid colon and descending colon but no other diverticular bleeding. Patient is now stable, H and H is stable, BP is under control, and no syncopal events. Patient is to make a BP log and can continue taking flomax and finasteride for BPH. All blood pressure medications a re to be held until patient sees PCP within 1 week of discharge. Problem List: #Syncopal episodes secondary to polypharmacy #Melena secondary to lower GI bleed #Chronic smoker #OG #BPH #Labile blood pressure #Coronary artery disease #Hyperlipidemia #History of Chronic Pain Discharge Instructions: - Please f/u with PCP within 1 week of discharge - Your blood pressure medications have been held. Please keep log of blood pressure in AM and PM and bring to PCP appointment for further adjustments of medications. - Continue flomax for BPH (urinary retension symtom). If you have any symptoms of dizziness, lightheadedness, frequent falls, please make PCP aware as flomax may be the cause of these symptoms - You are being prescribed a new medication called finasteride, which also helps with urinary retention symptoms. If you get dizziness, lightheadedness or falls, stop taking flomax but you can continue taking finasteride. - Follow up with Urology regarding BPH. - Monitor your stool for any signs of blood (bright red or dark red). - Return to hospital if symptoms worsen or reocur. Patient care and discharge instructions discussed with my attendion Dr. Wilson, and senior residents Dr. Jericho Stuart and Dr. Domingo. [facility] IV Dr. Jericho Stuart PGY-II Time Spent with Patient Time attestation: Total time spent providing and/or coordinating discharge services: Time spent: Greater than 30 minutes Exam Vital Signs Temp Pulse Resp BP Pulse Ox O2 Del Method O2 Flow Rate 98.3 F 82 18 156/90 H 96 Room Air 2 03/16/25 07:58 03/16/25 07:58 03/16/25 07:58 03/16/25 07:58 03/16/25 07:58 03/16/25 07:58 03/15/25 16:10 Narrative Exam General: Patient is fully alert and oriented. In no acute distress. Cardio: RRR, no murmurs, gallops or rubs appreciated. Resp: Normal lung sounds, no rales or wheezing auscultated. MSK/ Extremities: No muscle or joint pain on any movement. No bruising or skin changes visible. No presence of trace or pitting edema in lower extremities bilaterally, dorsalis pedis pulses +2 bilaterally GI: No abdominal distension, normal bowel sounds. Mild tenderness to palpation in left lower quadrant, no tenderness in any other area. Neuro: AAOx3, no focal motor or sensory deficits in the UE or LE bilat Psych: Good judgement, thought and behavior. Cooperative Discharge Plan Plan Patient Disposition: HOME (Self Care) Patient condition on transfer: Stable Care Plan Goals: - Please f/u with PCP within 1 week of discharge - Your blood pressure medications have been held. Please keep log of blood pressure in AM and PM and bring to PCP appointment for further adjustments of medications. - Continue flomax for BPH (urinary retension symtom). If you have any symptoms of dizziness, lightheadedness, frequent falls, please make PCP aware as flomax may be the cause of these symptoms - You are being prescribed a new medication called finasteride, which also helps with urinary retention symptoms. If you get dizziness, lightheadedness or falls, stop taking flomax but you can continue taking finasteride. - Follow up with Urology regarding BPH. - Monitor your stool for any signs of blood (bright red or dark red). - Return to hospital if symptoms worsen or reocur. Prescriptions/Referrals Prescriptions/Med Rec: New finasteride 5 mg tablet 5 mg PO QDAY Qty: 30 0RF Continued tamsulosin 0.4 mg capsule 0.4 mg PO QDAY hydrocodone-acetaminophen 10-325 mg tablet 1 tab PO TID cyclobenzaprine 10 mg Tablet 10 mg PO TID gabapentin 300 mg Tablet 300 mg PO QID atorvastatin 40 mg tablet 40 mg PO QPM Qty: 30 2RF aspirin 81 mg tablet,delayed release (DR/EC) 81 mg PO QDAY Qty: 30 2RF albuterol sulfate 90 mcg/actuation HFA aerosol inhaler 2 puff INHALATION Q4H PRN (Reason: shortness of breath or wheezing) Patient Comments: INHALE 2 PUFFS EVERY 4 HOURS BY INHALATION ROUTE NEEDED FOR SHORTNESS OF BREATH. Discontinued amlodipine 10 mg tablet 10 mg PO QDAY tadalafil [Cialis] 10 mg tablet 10 mg PO DIRECTED PRN (Reason: Sexual Activity) Patient Comments: Twice a week Rx Instructions: administer approximately 30min before sexual activity; do not use more than 1 dose per 24hrs ibuprofen 800 mg Tablet 800 mg PO TID PRN (Reason: Pain) lisinopril 20 mg Tablet 30 mg PO QDAY Referrals: Carri Dubon FNP [Primary Care Provider] Patient/Caregiver Discharge Instructions Education Materials: Colonoscopy Print Language: Venezuelan Stand Alone Forms: Arleen Award Info., Patient Portal Info Letter Discharge Order Discharge Orders: Discharge (Routine); Ordered 03/16/25 Ordered By: Keven Stuart Quality Discharge Quality Measures VTE prophylaxis
[2025-03-16] MEDS: FINASTERIDE 5 MG TABLET PO (10:56)
[2025-03-16 10:58] VITALS: BP 151/91; PULSE 89
--- NOTE | 2025-03-16 11:29 | PC.PT ---
Patient was approached at 1030, as per patient he is Independent with transfers and ambulation. He doesn't need PT. This is confirmed by RN. He is pending dc. Will cancel PT evaluation.
[2025-03-16 11:42] VITALS: BP 147/84; PULSE 81; RESP 20; TEMP 36.8; O2SAT 97
--- NOTE | 2025-03-16 21:38 | ESPR_ITS ---
Documentation for date of: 03/16/25 Subjective Subjective Interval history: Late entry for the note Hemoglobin hematocrit 11.7 and 34.4 Case discussed with internal medicine team Okay to discharge patient home Upper endoscopy showed gastritis and esophagitis Colonoscopy showed diverticulosis sigmoid and descending colon Outpatient follow-up for a capsule endoscopy Exam Vital Signs Temp Pulse Resp BP Pulse Ox O2 Del Method O2 Flow Rate 98.2 F 81 20 147/84 H 97 Room Air 2 03/16/25 11:42 03/16/25 11:42 03/16/25 11:42 03/16/25 11:42 03/16/25 11:42 03/16/25 11:42 03/15/25 16:10 Objective Labs 03/16/25 04:20 03/16/25 04:20 Labs: Laboratory Results - last 24 hr 03/16/25 04:20 WBC 9.9 RBC 3.91 L Hgb 11.7 L Hct 34.4 L MCV 88 MCH 29.9 MCHC 34.0 RDW Std Deviation 46.4 H Plt Count 249 D Neut % (Auto) 61 Lymph % (Auto) 26 [place] % (Auto) 9 Eos % (Auto) 2 Baso % (Auto) 1 Neut # (Auto) 6.0 Lymph # (Auto) 2.6 [place] # (Auto) 0.9 H Eos # (Auto) 0.2 Baso # (Auto) 0.1 Immature Gran # (Auto) 0.03 H Absolute Nucleated RBC 0.00 Immature Gran % 0 Nucleated RBC % 0 Sodium 146 H Potassium 3.4 Chloride 115 H Carbon Dioxide 22.1 Anion Gap 9 BUN 7 L Creatinine 1.0 Estim Creat Clear Calc 84.2 eGFR > 60 BUN/Creatinine Ratio 7 L Glucose 84 Calculated Osmolality 287 Calcium 9.0 Corrected Calcium 9.2 Total Bilirubin 0.6 AST 17 ALT 10 Alkaline Phosphatase 110 Total Protein 6.2 Albumin 3.8 Globulin 2.4 Albumin/Globulin Ratio 1.6 Impressions Impression: Gastritis Esophagitis Diverticulosis sigmoid and descending colon Okay to discharge patient to be followed as an outpatient Assessment & Plan A&P Narrative Melena Hemoccult positive stool Anemia blood loss OG on CKD Essential hypertension Plan Clear liquid diet N.p.o. midnight tonight except p.o. meds Consent obtained for fiberoptic esophagogastroduodenoscopy with possible biopsy possible therapeutic intervention under intravenous moderate sedation Scheduled for tomorrow IV Protonix Thank you very much for the opportunity to participate in care of this patient Time Spent With Patient Time: Total time spent is greater than 50% in coordination of care (as documented) at patient's floor/unit and/or counseling patient:
== END 2025-03-16 12:00 | disposition home or self-care (01) | DRG 347 ==
LOC: SERX 16:28 → SERHOLD 16:35 → S3NX 18:37
PROVIDERS: Nurse Practitioner Family; Specialist; Admitting Provider Internal Medicine; Emergency Provider Family Medicine; PCP Nurse Practitioner; Visit Provider Internal Medicine
PROC: (CPT 43239; principal; 2025-03-14 17:00)
PROC: 0DJD8ZZ Inspection of Lower Intestinal Tract, Via Natural or Artificial Opening Endoscopic (ICD-10-PCS; CPT 45378; principal; 2025-03-15 15:45)
DX: K20.91 Esophagitis, unspecified with bleeding (principal); K29.71 Gastritis, unspecified, with bleeding; K57.31 Diverticulosis of large intestine without perforation or abscess with bleeding; D62 Acute posthemorrhagic anemia; N17.9 Acute kidney failure, unspecified; R55 Syncope and collapse; N40.0 Benign prostatic hyperplasia without lower urinary tract symptoms; M54.9 Dorsalgia, unspecified; G89.29 Other chronic pain; Z79.891 Long term (current) use of opiate analgesic; F17.210 Nicotine dependence, cigarettes, uncomplicated; E78.5 Hyperlipidemia, unspecified; I25.10 Atherosclerotic heart disease of native coronary artery without angina pectoris; K64.3 Fourth degree hemorrhoids; I12.9 Hypertensive chronic kidney disease with stage 1 through stage 4 chronic kidney disease, or unspecified chronic kidney disease; Z79.82 Long term (current) use of aspirin; N18.9 Chronic kidney disease, unspecified; T50.915A Adverse effect of multiple unspecified drugs, medicaments and biological substances, initial encounter; Z66 Do not resuscitate; I95.2 Hypotension due to drugs; R29.6 Repeated falls; Z79.899 Other long term (current) drug therapy
CPT/HCPCS: 36415; 70450; 74150; 74176; 76770; 80053; 80061; 81001; 82270; 83735; 84100; 84443; 85025; 85610; 85730; 86850; 86900; 86901; 93005; 93225; 99284; A4314; A4649; J1200; J1644; J1756; J2250; J2470; J3010; J7120; J7999; A9270

== ENCOUNTER 2025-03-23 09:50 | Emergency (ER) | payer MEDICARE, MEDICAID, SELFPAY ==
[2025-03-23 09:51] VITALS: BMI 28.7
[2025-03-23 09:55] VITALS: BP 125/71; PULSE 88; RESP 18; TEMP 36.7; O2SAT 97
--- NOTE | 2025-03-23 10:12 | PD.EDRME ---
Rapid Medical Screening Exam RME Arrival date/time: 03/23/25 09:50 69-year-old male with a history of hyperlipidemia, BPH, presents to the emergency room with a chief complaint of increased rectal bleeding. Patient states he had a colonoscopy done on 03/15/2025 and since the procedure he has had worsening rectal bleeding I have greeted and performed a focused initial assessment of this patient. A comprehensive ED assessment and evaluation of the patient, analysis of all test results, and completion of the medical decision making process will be conducted by additional ED providers. Chief Complaint: GI Bleed Time Seen by Provider: 03/23/25 09:55 Vital signs: Vital Signs Temperature 98.1 F 03/23/25 09:55 Pulse Rate 88 03/23/25 09:55 Respiratory Rate 18 03/23/25 09:55 Blood Pressure 125/71 03/23/25 09:55 Pulse Oximetry (%) 97 03/23/25 09:55 Oxygen Delivery Method Room Air 03/23/25 09:55 Vital signs reviewed by provider: Yes
[2025-03-23 11:06] LABS: Basophils # (Auto) 0.1 Thou/mm3 (0.0-0.2); Basophils % (Auto) 1 % (0-2.5); Eosinophils # (Auto) 0.1 Thou/mm3 (0.0-0.5); Eosinophils % (Auto) 1 % (0-10); Hematocrit 35.6 % (41.0-53.0); Hemoglobin 11.8 g/dL (13.5-16.0); Immature Granulocytes Auto 0.05 Thou/mm3 (0.00-0.00); Lymphocytes # (Auto) 1.7 Thou/mm3 (1.0-4.8); Lymphocytes % (Auto) 11 % (10-50); Mean Corpuscular HGB Conc 33.1 g/dl (31.0-37.0); Mean Corpuscular Hemoglobin 30.0 pg (25.0-35.0); Mean Corpuscular Volume 91 fL (80-100); Monocytes # (Auto) 0.9 Thou/mm3 (0.0-0.8); Monocytes % (Auto) 6 % (0-12); Neutrophils # (Auto) 12.3 Thou/mm3 (1.8-7.7); Neutrophils % (Auto) 81 % (37-80); Nucleated Red Blood Cell # 0.00 Thou/mm3 (0.00-0.00); Nucleated Red Blood Cell % 0 /100 WBC (0); Platelet Count 325 Thou/mm3 (140-440); RDW Standard Deviation 49.2 fL (35.1-43.9); Red Blood Count 3.93 Miln/mm3 (4.50-5.90); White Blood Count 15.1 Thou/mm3 (3.8-10.6)
[2025-03-23 11:17] LABS: INR 1.0 (0.9-1.3); Partial Thromboplastin Time 26.5 Seconds (22.0-36.0); Prothrombin Time 11.1 Seconds (9.0-12.2)
[2025-03-23 11:19] LABS: Alanine Aminotransferase 18 U/L (10-49); Albumin, Serum 4.4 gm/dL (3.4-4.8); Albumin/Globulin Ratio 1.4 (1.2-2.2); Alkaline Phosphatase 98 U/L (46-116); Anion Gap 5 (7-16); Aspartate Amino Transferase 20 U/L (0-34); BUN/Creatinine Ratio 15 Ratio (12-20); Bilirubin,Total 0.7 mg/dL (0.3-1.2); Blood Urea Nitrogen 20 mg/dL (9-23); Calcium 9.6 mg/dL (8.3-10.6); Calcium (Corrected) 9.6 mg/dL (8.5-10.1); Carbon Dioxide 23.6 mMol/L (20.0-31.0); Chloride 113 mMol/L (98-107); Creatinine (Component) 1.3 mg/dL (0.6-1.3); Estimated Creatinine Clearance 65.4 mL/min (>60); Globulin 3.1 gm/dL (2.3-3.5); Glucose 137 mg/dL (74-106); Osmolality,Calculated 287 (275-295); Potassium 3.4 mMol/L (3.4-5.1); Sodium 142 mMol/L (136-145); Total Protein 7.5 gm/dL (5.7-8.2); eGFR 60 See Note
--- NOTE | 2025-03-23 12:15 | PC.NURSE ---
PATIENT WALKED OUT OF LOBBY WITH SPOUSE, STATING I DO NOT WANT TO WAIT ANY LONGER
== END 2025-03-23 12:15 | disposition left against medical advice (07) ==
LOC: SERX 10:59
PROVIDERS: Nurse Practitioner Family; Emergency Provider Emergency Medicine; PCP Nurse Practitioner
DX: K62.5 Hemorrhage of anus and rectum (principal); E78.5 Hyperlipidemia, unspecified; Z53.29 Procedure and treatment not carried out because of patient's decision for other reasons
CPT/HCPCS: 36415; 80053; 81001; 85025; 85610; 85730; 86850; 86900; 86901; 87086; 99284

== ENCOUNTER → 2025-04-09 | Outpatient (CLI) | payer MEDICARE, MEDICAID, SELFPAY ==
[2025-04-09 11:34] LABS: Basophils # (Auto) 0.1 Thou/mm3 (0.0-0.2); Basophils % (Auto) 1 % (0-2.5); Eosinophils # (Auto) 0.2 Thou/mm3 (0.0-0.5); Eosinophils % (Auto) 2 % (0-10); Hematocrit 36.8 % (41.0-53.0); Hemoglobin 11.8 g/dL (13.5-16.0); Immature Granulocytes Auto 0.03 Thou/mm3 (0.00-0.00); Lymphocytes # (Auto) 2.1 Thou/mm3 (1.0-4.8); Lymphocytes % (Auto) 24 % (10-50); Mean Corpuscular HGB Conc 32.1 g/dl (31.0-37.0); Mean Corpuscular Hemoglobin 30.0 pg (25.0-35.0); Mean Corpuscular Volume 94 fL (80-100); Monocytes # (Auto) 0.7 Thou/mm3 (0.0-0.8); Monocytes % (Auto) 9 % (0-12); Neutrophils # (Auto) 5.5 Thou/mm3 (1.8-7.7); Neutrophils % (Auto) 64 % (37-80); Nucleated Red Blood Cell # 0.00 Thou/mm3 (0.00-0.00); Nucleated Red Blood Cell % 0 /100 WBC (0); Platelet Count 339 Thou/mm3 (140-440); RDW Standard Deviation 51.9 fL (35.1-43.9); Red Blood Count 3.93 Miln/mm3 (4.50-5.90); White Blood Count 8.5 Thou/mm3 (3.8-10.6)
[2025-04-09 11:51] LABS: Alanine Aminotransferase 17 U/L (10-49); Albumin, Serum 4.2 gm/dL (3.4-4.8); Albumin/Globulin Ratio 1.6 (1.2-2.2); Alkaline Phosphatase 101 U/L (46-116); Anion Gap 8 (7-16); Aspartate Amino Transferase 19 U/L (0-34); BUN/Creatinine Ratio 10 Ratio (12-20); Bilirubin,Total 0.3 mg/dL (0.3-1.2); Blood Urea Nitrogen 11 mg/dL (9-23); Calcium 9.4 mg/dL (8.3-10.6); Calcium (Corrected) 9.4 mg/dL (8.5-10.1); Carbon Dioxide 21.0 mMol/L (20.0-31.0); Chloride 115 mMol/L (98-107); Creatinine (Component) 1.1 mg/dL (0.6-1.3); Globulin 2.6 gm/dL (2.3-3.5); Glucose 131 mg/dL (74-106); Osmolality,Calculated 288 (275-295); Potassium 3.9 mMol/L (3.4-5.1); Sodium 144 mMol/L (136-145); Total Protein 6.8 gm/dL (5.7-8.2); eGFR > 60 See Note
[2025-04-09 11:51] LABS: Collection Type, Urine Clean Catch
[2025-04-09 12:12] LABS: Bilirubin,Urine Negative (Negative); Blood,Urine Negative (Negative); Clarity,Urine Clear (Clear/Hazy); Color,Urine Yellow (Lt Yel-Yel); Glucose, Urine Negative (Negative); Hyaline Casts,Urine < 1 /hpf (0-1); Ketones,Urine Negative (Negative); Leukocyte Esterase,Urine Negative (Negative); Nitrite,Urine Negative (Negative); PH,Urine 6.0 (5.0-7.0); Protein,Urine 1+ (Neg - Trace); RBC,Urine 4 /hpf (0-3); Specific Gravity,Urine 1.024 (1.001-1.035); Squamous Epithelial Cell,Urine 1 /hpf (0-5); Urobilinogen,Urine Negative mg/dL (0.0-1.0); WBC,Urine 2 /hpf (0-5)
== END | disposition home or self-care (01) ==
LOC: COPL 10:47
PROVIDERS: PCP Family Medicine; Referring Provider Nurse Practitioner; Visit Provider Nurse Practitioner
DX: K52.9 Noninfective gastroenteritis and colitis, unspecified (principal); N28.89 Other specified disorders of kidney and ureter; N18.32 Chronic kidney disease, stage 3b
CPT/HCPCS: 36415; 80053; 81001; 85025

== ENCOUNTER → 2025-04-10 | Outpatient (CLI) | payer MEDICARE, MEDICAID, SELFPAY ==
[2025-04-10 15:10] LABS: Misc Send Out* See Sep Rpt
[2025-04-17 06:20] LABS: Helicobacter pylori Ag, Stool* DETECTED (NOT DETECTED)
[2025-04-17 22:08] LABS: Source STOOL
[2025-04-20 06:34] LABS: Calprotectin, Stool* 22 mcg/g
== END | disposition home or self-care (01) ==
LOC: SLDO 15:00
PROVIDERS: PCP Nurse Practitioner; Referring Provider Nurse Practitioner; Visit Provider Nurse Practitioner
DX: K52.9 Noninfective gastroenteritis and colitis, unspecified (principal); N28.89 Other specified disorders of kidney and ureter; N18.32 Chronic kidney disease, stage 3b
CPT/HCPCS: 83993; 87177; 87209; 87338

== ENCOUNTER → 2025-06-02 | Outpatient (CLI) | payer MEDICARE, MEDICAID, SELFPAY ==
[2025-06-02 12:28] LABS: Basophils # (Auto) 0.1 Thou/mm3 (0.0-0.2); Basophils % (Auto) 2 % (0-2.5); Eosinophils # (Auto) 0.1 Thou/mm3 (0.0-0.5); Eosinophils % (Auto) 2 % (0-10); Hematocrit 41.3 % (41.0-53.0); Hemoglobin 13.9 g/dL (13.5-16.0); Immature Granulocytes Auto 0.03 Thou/mm3 (0.00-0.00); Lymphocytes # (Auto) 2.0 Thou/mm3 (1.0-4.8); Lymphocytes % (Auto) 24 % (10-50); Mean Corpuscular HGB Conc 33.7 g/dl (31.0-37.0); Mean Corpuscular Hemoglobin 31.0 pg (25.0-35.0); Mean Corpuscular Volume 92 fL (80-100); Monocytes # (Auto) 0.6 Thou/mm3 (0.0-0.8); Monocytes % (Auto) 7 % (0-12); Neutrophils # (Auto) 5.3 Thou/mm3 (1.8-7.7); Neutrophils % (Auto) 66 % (37-80); Nucleated Red Blood Cell # 0.00 Thou/mm3 (0.00-0.00); Nucleated Red Blood Cell % 0 /100 WBC (0); Platelet Count 359 Thou/mm3 (140-440); RDW Standard Deviation 44.9 fL (35.1-43.9); Red Blood Count 4.49 Miln/mm3 (4.50-5.90); White Blood Count 8.2 Thou/mm3 (3.8-10.6)
[2025-06-02 13:14] LABS: Alanine Aminotransferase 25 U/L (10-49); Albumin, Serum 4.6 gm/dL (3.4-4.8); Albumin/Globulin Ratio 1.5 (1.2-2.2); Alkaline Phosphatase 114 U/L (46-116); Anion Gap 6 (7-16); Aspartate Amino Transferase 24 U/L (0-34); BUN/Creatinine Ratio 13 Ratio (12-20); Bilirubin,Total 0.5 mg/dL (0.3-1.2); Blood Urea Nitrogen 14 mg/dL (9-23); Calcium 9.3 mg/dL (8.3-10.6); Calcium (Corrected) 9.3 mg/dL (8.5-10.1); Carbon Dioxide 23.4 mMol/L (20.0-31.0); Chloride 115 mMol/L (98-107); Creatinine (Component) 1.1 mg/dL (0.6-1.3); Globulin 3.0 gm/dL (2.3-3.5); Glucose 103 mg/dL (74-106); Osmolality,Calculated 287 (275-295); Potassium 3.8 mMol/L (3.4-5.1); Sodium 144 mMol/L (136-145); Total Protein 7.6 gm/dL (5.7-8.2); eGFR > 60 See Note
== END | disposition home or self-care (01) ==
LOC: COPL 11:31
PROVIDERS: PCP Nurse Practitioner; Referring Provider Nurse Practitioner; Visit Provider Nurse Practitioner
DX: K52.9 Noninfective gastroenteritis and colitis, unspecified (principal); R19.5 Other fecal abnormalities; A04.8 Other specified bacterial intestinal infections
CPT/HCPCS: 36415; 80053; 85025

== ENCOUNTER → 2025-06-03 | Outpatient (CLI) | payer MEDICARE, MEDICAID, SELFPAY ==
[2025-06-03 10:36] LABS: Misc Send Out* See Sep Rpt
[2025-06-03 10:36] LABS: OBS Card Expiration Date 2028/02/28; OBS Performed By LAB; OBS QC OK? Yes
[2025-06-03 12:27] LABS: OBS Developer Lot # 0424551749; Occult Blood, Stool Negative (Negative)
[2025-06-06 13:51] LABS: Source STOOL
[2025-06-08 06:42] LABS: Helicobacter pylori Ag, Stool* NOT DETECTED (NOT DETECTED)
== END | disposition home or self-care (01) ==
LOC: SLDO 10:18
PROVIDERS: Referring Provider Nurse Practitioner; Visit Provider Nurse Practitioner
DX: R19.5 Other fecal abnormalities (principal); A04.8 Other specified bacterial intestinal infections; K52.9 Noninfective gastroenteritis and colitis, unspecified
CPT/HCPCS: 82270; 87177; 87209; 87338; 87506